=== PATIENT | female | born 1940 | race Caucasian/White ===

== ENCOUNTER → 2023-10-26 09:02 | Outpatient (REF) | payer OTHER, SELFPAY | LOC: RAD 09:02 | PROVIDERS: ATTENDING PHYSICIAN Internal Medicine; FAMILY PHYSICIAN Family Medicine | DX: K44.9 Diaphragmatic hernia without obstruction or gangrene (principal) | CPT/HCPCS: 74246 ==

== ENCOUNTER 2023-11-06 15:31 | Inpatient (IN) | payer OTHER, SELFPAY ==
[2023-11-06 12:45] VITALS: BP 188/98
[2023-11-06 12:49] VITALS: BMI 34.7
--- NOTE | 2023-11-06 12:57 | ED.GENMED ---
History of Present Illness
General
Chief Complaint: Breathing Problem
Source: patient and ambulance crew
Exam Limitations: none
Time Seen by Provider: 11/06/23 12:44
Nursing documentation reviewed up to this point in time: agreed with
Travel History
Have you had any contact with someone who has COVID-19?: No
Do you have any symptoms of coronavirus? Fever > 100 degrees, chills, cough, shortness of breath, sore throat, loss of taste or smell, muscle aches, or headache?: Yes
Symptoms:: cough
History of Present Illness
History of Present Illness:
83-year-old female presents emergency room due to shortness of breath. She began feeling short of breath about a week ago and is worsened. She denies any fevers or chills, but has a productive cough.
Past History
Past History
ED Past Medical History: COPD, GERD and HTN
ED Past Surgical History: Orthopedic (bilateral hip replacement) and Other (right mastectomy, left lumpectomy, cataracts)
Social History
Tobacco: Former smoker
Alcohol: None
Drug: None
Living: with family
Review of Systems
Review of Systems
Allergies reviewed?: Yes
All Other Systems: Not applicable
Constitutional: Reports no symptoms
EENT: Reports no symptoms
Respiratory: Reports trouble breathing
Cardiac: Reports no symptoms
ABD/GI: Reports no symptoms
: Reports no symptoms
Musculoskeletal: Reports no symptoms
Skin: Reports no symptoms
Neurological: Reports no symptoms
Endocrine: Reports no symptoms
Hematologic/Lymphatic: Reports no symptoms
Psychiatric: Reports no symptoms
Phy Exam
Physical Exam
Physical Exam:
Physical Exam
General: Moderate respiratory distress
Neck: supple. no meningeal signs. normal posterior pharynx
Heart: s1/s2 regular rate and rhythm, no murmur. equal radial
pulses.
HEENT: Pupils equal round reactive to light, EOMI
Lungs: Moderate respiratory distress, decreased breath sounds bilaterally
Abdomen: normal bowel sounds. not tender. no CVAT
Neuro: alert and oriented. no focal neurological deficits cranial nerves II through XII intact
Skin: no rash
Psychiatric: well kept. interactive and cooperative
Extremities: no edema. no calf tenderness. negative homans. good distal pulses
Scores
Heart Failure Risk
Heart Failure Risk Score: Not Applicable
Course
Orders/Labs/Results
Orders:
Orders
11/06/23 12:48
EKG [Electrocardiogram (*1)] Urgent
Reason for Study: Shortness of Breath
EKG- Treatment ONCE
11/06/23 12:56
Cardiac Monitoring- Treatment ONCE
IV Insert/Care/Rem.- Treatment PRN
Dexamethasone Sod Phosphate [Decadron] 10 mg IV NOW STA
Ipratropium/Albuterol Sulfate [Duoneb] 3 ml INH R NOW STA
CR Chest Portable - 1 View Urgent
Comment:
Reason For Exam: short of breath
Reason Study Needs to be Portable: Patient Unstable
11/06/23 13:00
Complete Blood Count/With Diff Urgent
Comprehensive Metabolic Panel Urgent
Lactic Acid Q4H
Comment: CANCEL 2nd LACTIC ACID IF 1st LACTIC ACID IS LESS THAN 2
NT-proBNP Urgent
Troponin I Urgent
Blood Culture Urgent
TRACY Source: Blood/Venous
Specimen Description:
11/06/23 14:48
COVID-19 Antigen Urgent
Source: Nasal Swab
Influenza A+B Rapid Molecular Urgent
TRACY Source: Nasal Swab
Specimen Description:
11/06/23 15:02
Admit/Transfer Patient As Directed
Co-Sign Provider:
Level of Care: Inpatient admission
Assign to:: Medical/Surgical
Physician / Group: bunny posadas
Diagnosis: acute on chronic copd exacerbation
Reason for Hospitalization: acute on chronic copd exacerbation
Expected length of stay greater than two midnights?: Yes
ELOS- Estimated Length of Stay in days: 3
I certify the patient meets the requirements for IP care: Yes
Code Status As Directed
Resuscitation Status: Do not resuscitate
Reached after discussion with pt or family/Healthcare POA: Yes
Based on pt advanced directive or healthcare POA form: Yes
Decision communicated with: per pt
DNR Bracelet Application ONCE
11/06/23 15:10
Cortisol, Random Routine
Serum Osmolality Routine
Urine Osmolality Random [Osmolality, Random Urine] Routine
Urine Sodium Routine
11/06/23 17:00
Lactic Acid Q4H
Comment: CANCEL 2nd LACTIC ACID IF 1st LACTIC ACID IS LESS THAN 2
11/06/23 20:00
Doxycycline [Vibramycin] 100 mg PO Q12
11/07/23 06:00
TSH Reflex To Free T4 IN AM
Abnormal Lab Results
11/06/23
13:00
MPV 10.6 H fL
(7.4-10.4)
Absolute Monos (auto) 0.9 H 10^3/uL
(0.1-0.6)
Monocytes % 10.5 H %
(1.7-9.3)
Sodium 128 L mmol/L
(135-145)
Chloride 92 L mmol/L
(98-107)
Glucose 106 H mg/dl
(70-99)
Calcium 10.4 H mg/dl
(8.4-10.2)
Total Bilirubin 1.5 H mg/dl
(0.2-1.3)
11/06/23 13:00
11/06/23 13:00
Vital Signs
Initial and Last Documented VS:
Initial Vital Signs
Pulse Ox
97
11/06/23 12:44
Last Documented Vital Signs
Temp Pulse Resp BP Pulse Ox
97.9 F 92 17 129/90 100
11/06/23 12:45 11/06/23 14:00 11/06/23 14:00 11/06/23 14:00 11/06/23 14:00
MDM/Problems Addressed
Differential Diagnosis Includes:
Pneumonia, CHF, COPD exacerbation
MDM/Problems Addressed:
83-year-old female with COPD exacerbation, hypoxia. Improved with nonrebreather and DuoNebs. Patient now transition to nasal cannula.
Chronic conditions affecting care: COPD
Acute Exacerbation and/or Progression of Chronic Illness: COPD
*Radiology
Radiology exam reviewed: radiology read reviewed (Chest x-ray shows fibrosis and COPD)
*Pulse Oximetry
Patient hypoxic: yes
*EKG
Interpreted by ED Provider?: Yes
EKG Intrepretation Date: 11/06/23
EKG Intrepretation Time: 12:51
Interpretation: abnormal
Comparison EKG: no comparison EKG present
Heart Rate: 101
Rate: tachycardiac
Rhythm: sinus tachycardia
[place]: normal axis
Interval: normal interval
QRS Pattern: normal QRS
Ischemia: no ischemia
*Field Tech Interpretation
Rate: tachycardiac
Interpretation: abnormal
Heart Rate: 100
Rhythm: sinus tachycardia
*Critical Care Note
Total Time (30-74mins, 75-104mins- exclusive of procedures): Not Applicable
Data Reviewed
Further Testing Considered But Not Given:
ct chest not indicated
Patient Management
Social determinants of health affecting care: Living situation
Discussion with other providers: Hospitalist
Escalation/DeEscalation of care consider admission/obs:
admit not indicated
ED Attending Note
-
Portions of this chart may have been created with voice recognition software.� Occasional wrong word or��sound alike� substitutions may have occurred due to the inherent limitations of voice recognition software.
Discharge Plan
Departure
Patient Disposition: Admit
Date of Disposition: 11/06/23
Time of Disposition: 14:25
Admit to: IMU
Presentation/result/management discussed w/ accepting MD/DO: Hospitalist
Patient with high blood pressure during this ER visit?: Yes
Condition: Fair
Discharge Problem:
Acute exacerbation of chronic obstructive pulmonary disease
Prescriptions:
No Action
fluticasone propion-salmeterol [Wixela Inhub] 250-50 mcg/dose Blister With Device
1 inh INHALATION R DAILYPRN PRN (Reason: sob)
lisinopril 20 mg Tablet
20 mg PO DAILY
guaifenesin [Robitussin] 100 mg/5 mL Liquid
200 mg PO HS
guaifenesin [Robitussin] 100 mg/5 mL Liquid
200 mg PO DAILYPRN PRN (Reason: congestion)
acetaminophen [Tylenol 8 Hour] 650 mg Tablet Extended Release
1,300 mg PO DAILY
pantoprazole 40 mg Tablet,Delayed Release (Dr/Ec)
40 mg PO DAILY
albuterol sulfate 90 mcg/actuation Hfa Aerosol Inhaler
2 puff INHALATION R Q4HPRN PRN (Reason: wheezing)
carboxymethylcellulose sodium [Refresh] 1 % Drops, Liquid Gel
2 drp BOTH EYES DAILYPRN PRN (Reason: dry eyes)
tiotropium bromide [Spiriva with HandiHaler] 18 mcg Capsule, W/Inhalation Device
1 cap INHALATION R DAILY
cholecalciferol (vitamin D3) 50 mcg (2,000 unit) Tablet
50 mcg PO DAILY
guaifenesin [Mucinex] 600 mg Tablet Extended Release 12hr
1,200 mg PO DAILY
Smooth Move Tea
1 dose PO DAILYPRN PRN (Reason: constipation)
Patient Comments:
11/06/2023, contains Senokot.
Interventions
Interventions:
*Risk Screen - Suicide Last Done: 11/06/23 12:52
*General Assessment Last Done: 11/06/23 12:50
*Neglect/Abuse Screening Last Done: 11/06/23 12:52
*ED COVID-19 Vaccine History Last Done: 11/06/23 12:49
ED- Cardiac Assessment Last Done: 11/06/23 12:50
ED- Pulmonary Assessment Last Done: 11/06/23 12:51
Discharge Date and Time
Print Language: TURKISH
[2023-11-06 13:00] VITALS: BP 183/97
[2023-11-06] MEDS: DUONEB 3 ML INH ×2 (13:04→19:38)
[2023-11-06] MEDS: DECADRON 10 MG IV (13:04)
[2023-11-06 13:13] LABS: % Basophils 0.7 % (0-2); % Eosinophils 4.2 % (0-6); % Immature Granulocytes 0.2 % (0-0.5); % Lymphocytes 26.5 % (20.5-51.1); % Monocytes 10.5 % (1.7-9.3); % Neutrophils 57.9 % (42.2-75.2); Absolute Basophils 0.1 10^3/uL (0-0.2); Absolute Eosinophils 0.4 10^3/uL (0-0.7); Absolute Lymphocytes 2.2 10^3/uL (1.2-3.4); Absolute Monocytes 0.9 10^3/uL (0.1-0.6); Absolute Neutrophils 4.8 10^3/uL (1.4-6.5); Hemoglobin 14.4 g/dL (12.0-16.0); Mean Corp Hgb Conc. 33.5 g/dL (33.0-37.0); Mean Corpuscular Hgb 30.6 pg (27.0-31.0); Mean Corpuscular Volume 91.5 fL (81.0-99.0); Mean Platelet Volume 10.6 fL (7.4-10.4); Nucleated Red Blood Cells % 0 %; Platelet Count 244 10^3/uL (130-400); Red Cell Dist. Width 13.2 % (11.5-14.5); White Blood Cell Count 8.4 10^3/uL (4.8-10.8)
[2023-11-06 13:23] LABS: ALT (SGPT) 15 U/L (0-35); AST (SGOT) 22 U/L (14-36); Albumin 4.6 g/dl (3.5-5.0); Alkaline Phosphatase 63 U/L (38-126); Blood Urea Nitrogen 14 mg/dl (7-17); Calcium 10.4 mg/dl (8.4-10.2); Carbon Dioxide 29 mmol/L (22-30); Chloride 92 mmol/L (98-107); Estimated Creatinine Clearance 66 ml/min; Glucose 106 mg/dl (70-99); Sodium 128 mmol/L (135-145); Total Bilirubin 1.5 mg/dl (0.2-1.3); Total Protein 7.2 g/dl (6.3-8.2); eGFR > 60.00
[2023-11-06 13:28] LABS: Potassium 4.9 mmol/L (3.5-5.1)
[2023-11-06 13:35] LABS: NT-proBNP 171 pg/ml; Troponin I < 0.012 ng/ml
[2023-11-06 14:00] VITALS: BP 129/90
--- NOTE | 2023-11-06 14:46 | HPS.HSE ---
Addendum entered and electronically signed by Stanley More MD 11/06/23 16:16:
Seen and examined by me independently in collaboration with the nurse practitioner Gi.
Past medical history/social history/medication/allergies reviewed.
Lab data and imaging data reviewed.
Patient with known COPD without recent flare or hospitalization unknown home nebulizers presents with 1 week of progressive shortness of breath. Started with a cough with yellow phlegm. No fever or chills. Nebulizers not helpful. Noted to be in
acute COPD flare. Treated in the ER still remains symptomatic with wheezing.
Chest with bilateral bronchospasm but no acute respiratory distress. Not hypoxic currently. Chest x-ray shows coarse interstitial markings in the bases which are likely scarring or fibrosis, changes of COPD. There is no acute findings compared
with August 2022 chest x-ray.
Possibly acute bronchitis causing COPD flare.
Treat with steroids, doxycycline and nebulizers.
Hyponatremia noted euvolemic. Check urine lites. Fluid restriction for now.
Lower extremity edema noted which by history seems to be dependent edema. Chest x-ray no evidence of heart failure. No JVD. No history of heart failure. Continue to follow.Check BNP.
Original Note:
Family Physician
-
Family Physician: Jose Pace MD
Chief Complaint
-
Shortness of breath, cough
History of Present Illness
83-year-old female complaining of shortness of breath that started approximately 1 week ago and has worsened with a productive yellow cough. She denies fever, chills, headache, chest pain, palpitations, abdominal pain, nausea, vomiting, diarrhea,
urinary symptoms. She has past medical history of COPD, former smoker, GERD, HTN, breast cancer.
Medical History
Past Medical History
Past Medical History: Reports Other
Additional Past Medical History:
COPD,
former smoker
GERD
HTN
breast cancer
Arthritis unknown type
Dry eye syndrome
Past Surgical History: Reports Other
Additional Past Surgical History:
Bilateral hip replacements
Right mastectomy
Left lumpectomy
Cataract extraction
Social History
Tobacco: Former Smoker (Quit 1988)
Alcohol: Occasional (Wine)
Personal: Single
Living: Alone
Employment: Retired
Family History
Family History: Other (Father age 52 [place], mother age 93 CVA)
Allergies / Home Medications
Allergies reflects when Allergies were last updated in [employer].
Home Medications with original date entered in [employer]
Allergy/Medication List:
Allergies
Allergy/AdvReac Type Severity Reaction Status Date / Time
diltiazem [From Cardizem] Allergy muscle pain Verified 08/09/22 19:48
heparin Allergy Itching Verified 08/09/22 19:48
latex Allergy Itching Verified 08/09/22 19:48
Home Medications
Smooth Move Tea 1 dose PO DAILYPRN PRN constipation 11/06/23
acetaminophen 650 mg tablet,extended release (Tylenol 8 Hour) 1,300 mg PO DAILY Pain 11/06/23
albuterol sulfate 90 mcg/actuation aerosol inhaler 2 puff inhalation R Q4HPRN PRN wheezing 11/06/23
carboxymethylcellulose sodium 1 % eye liquid gel drops 2 drp BOTH EYES DAILYPRN PRN dry eyes 11/06/23
cholecalciferol (vitamin D3) 50 mcg (2,000 unit) tablet 50 mcg PO DAILY Supplement 11/06/23
fluticasone 250 mcg-salmeterol 50 mcg/dose blistr powdr for inhalation (Wixela Inhub) 1 inh inhalation R DAILYPRN PRN sob 11/06/23
guaifenesin 100 mg/5 mL oral liquid 200 mg PO DAILYPRN PRN congestion 11/06/23
guaifenesin 100 mg/5 mL oral liquid 200 mg PO HS Congestion 11/06/23
guaifenesin 600 mg tablet, extended release 12 hr (Mucinex) 1,200 mg PO DAILY Congestion 11/06/23
lisinopril 20 mg tablet 20 mg PO DAILY Blood Pressure 11/06/23
pantoprazole 40 mg tablet,delayed release 40 mg PO DAILY Gastrointestinal Issue 11/06/23
tiotropium bromide 18 mcg capsule with inhalation device (Spiriva with HandiHaler) 1 cap inhalation R DAILY Lung/Breathing Issues 11/06/23
Review of Systems
-
History Source: Patient
A 12 point ROS was completed and negative except as noted: Yes
Constitutional: Denies Fever, Fatigue or Chills
EENT: Denies Sore Throat or Runny Nose
Respiratory: Reports Cough and Trouble Breathing (MARTINEZ, wheezing)
Cardiac: Denies Chest Pain, Diaphoresis, Palpitations or Syncope
Abdomen/GI: Denies Abdominal Pain, Nausea, Vomiting, Diarrhea, Constipated, Bloody Stools or Black Stools
: Denies Dysuria, Frequency, Flank Pain, Incontinence or Difficulty Voiding
Musculoskeletal: Reports Edema (+1 bilateral lower legs); Denies Joint Pain
Skin: Denies Itching or Rash
Neurological: Denies Dizzy, Headache or Weakness
Endocrine: Reports No Symptoms
Hematologic/Lymphatic: Reports No Symptoms
Psych: Reports Calm
Physical Exam
Vital Signs
Vital Signs
Temp Pulse Resp BP Pulse Ox
97.9 F 92 17 129/90 100
11/06/23 12:45 11/06/23 14:00 11/06/23 14:00 11/06/23 14:00 11/06/23 14:00
Physical Exam
General: Comfortable and Conversant; No Pain, Fever or Chills
HEENT: NormoCephalic, Anicteric, Moist mucous membranes, PERRLA, [place] Conjunctivae and No Ptosis
Respiratory: Wheezes (Inspiratory and expiratory throughout both lung lloyd)
Cardiac: S1/S2, Regular Rhythm and Peripheral Edema (Bilateral lower legs +1); No Murmur, Rub or Gallop
Breast: Deferred by me
GI: Soft, Non Tender, Normal Bowel Sounds and No Hepatosplenomegaly
Rectal: Deferred by Provider
Genito-urinary: Deferred by me
Musculoskeletal: No Clubbing, No Cyanosis, Edema, Left Lower Extremity (+1) and Edema, Right Lower Extremity (+1); No Edema, Left Upper Extremity or Edema, Right Upper Extremity
Skin: Warm and Dry; No Rash or Jaundice
Neuro: AO x 3, No Motor Deficits, Nonfocal/grossly intact, Cranial Nerves Intact and No Sensory Deficits; No Slurred Speech, Facial Droop or Tremors
Psych: Calm
Laboratory Results
-
11/06/23 13:00
11/06/23 13:00
Laboratory Results
Lactic Acid 1.0 mmol/L (0.7-2.0) 11/06/23 13:00
Total Bilirubin 1.5 mg/dl (0.2-1.3) H 11/06/23 13:00
AST 22 U/L (14-36) 11/06/23 13:00
ALT 15 U/L (0-35) 11/06/23 13:00
Alkaline Phosphatase 63 U/L (38-126) 11/06/23 13:00
Troponin I < 0.012 ng/ml 11/06/23 13:00
Impression/Plan
-
Impression/plan:
Admit to [facility]
#Acute on chronic COPD exacerbation
97% RA
-IV Decadron 4 mg every 6hours
-Decadron 4 mg every 6 hours
Doxycycline 100 mg every 12 hours
-DuoNebs scheduled and as needed
-Continue Robitussin as needed
-Patient follows with pulmonology at [facility]
-PT/OT/case management consult
EKG: Sinus tach with PACs 101 bpm, QTc 422 MS
#Hyponatremia
Check TSH with free T4, urine NA, urine Osmo, serum Osmo, cortisol level random
#HTN�benign
129/90
-Continue lisinopril 20 mg daily
#GERD
-Continue Protonix 40 mg daily
#Arthritis�unknown type
Patient takes Tylenol 1300 mg daily
#Breast cancer with right mastectomy/left lumpectomy
#Dry eye syndrome
Continue artificial tears
#Chronic ambulatory dysfunction
Uses cane at baseline
DVT prophylaxis
SCDs as patient reports itching from heparin
DNR
[2023-11-06 15:00] VITALS: BP 132/80
[2023-11-06 15:45] LABS: Osmolality Serum 281 mOsm/kg (275-300)
[2023-11-06 15:48] LABS: COVID-19 Antigen Negative (Negative)
[2023-11-06 16:22] LABS: Cortisol, Random 10.7 ug/dl
[2023-11-06 16:54] LABS: Osmolality Urine 202 mOsm/kg (300-900)
[2023-11-06 17:03] LABS: Urine Sodium 55 mmol/L (30-90)
[2023-11-06 17:51] VITALS: BP 151/91
[2023-11-06] MEDS: DUONEB INH (17:55)
[2023-11-06] MEDS: VIBRAMYCIN 100 MG PO (20:15)
[2023-11-06] MEDS: DECADRON 4 MG IV (20:15)
[2023-11-06] MEDS: TYLENOL 650 MG PO (20:33)
[2023-11-06] MEDS: ANESTHETIC LOZENGE 1 LOZENGE PO (21:39)
[2023-11-06 23:10] VITALS: BP 117/70
[2023-11-07] MEDS: DECADRON 4 MG IV ×4 (02:04→21:10)
[2023-11-07] MEDS: ANESTHETIC LOZENGE 1 LOZENGE PO ×3 (06:18→19:18)
[2023-11-07 07:00] VITALS: BP 126/73
[2023-11-07] MEDS: DUONEB 3 ML INH ×4 (07:28→20:30)
[2023-11-07] MEDS: ZESTRIL 20 MG PO (07:44)
[2023-11-07] MEDS: VIBRAMYCIN 100 MG PO ×2 (07:44→19:19)
[2023-11-07] MEDS: VITAMIN D3 (cholecalciferol) 50 MCG PO (07:44)
[2023-11-07] MEDS: MUCINEX 1200 MG PO (07:44)
[2023-11-07] MEDS: PROTONIX 40 MG PO (07:44)
[2023-11-07 08:43] LABS: % Basophils 0.2 % (0-2); % Immature Granulocytes 0.5 % (0-0.5); % Lymphocytes 11.6 % (20.5-51.1); % Monocytes 3.7 % (1.7-9.3); Absolute Monocytes 0.3 10^3/uL (0.1-0.6); Absolute Neutrophils 7.2 10^3/uL (1.4-6.5); Hematocrit 43.9 % (37.0-47.0); Hemoglobin 14.6 g/dL (12.0-16.0); Mean Corp Hgb Conc. 33.3 g/dL (33.0-37.0); Mean Corpuscular Hgb 29.9 pg (27.0-31.0); Mean Platelet Volume 10.8 fL (7.4-10.4); Nucleated Red Blood Cells % 0 %; Platelet Count 241 10^3/uL (130-400); Red Blood Cell Count 4.88 10^6/uL (4.20-5.40); Red Cell Dist. Width 12.7 % (11.5-14.5); White Blood Cell Count 8.6 10^3/uL (4.8-10.8)
[2023-11-07 09:22] LABS: Blood Urea Nitrogen 13 mg/dl (7-17); Calcium 10.3 mg/dl (8.4-10.2); Carbon Dioxide 26 mmol/L (22-30); Chloride 95 mmol/L (98-107); Estimated Creatinine Clearance 77 ml/min; Glucose 144 mg/dl (70-99); Potassium 4.9 mmol/L (3.5-5.1); Sodium 127 mmol/L (135-145); eGFR > 60.00
[2023-11-07 09:41] VITALS: BP 114/76; PULSE 83; PULSE 84; O2SAT 99
[2023-11-07 09:48] LABS: TSH Reflex To Free T4 0.34 uIU/ml (0.47-4.68)
[2023-11-07] MEDS: TYLENOL 650 MG PO ×2 (09:51→21:09)
[2023-11-07 15:00] VITALS: BP 131/72
--- NOTE | 2023-11-07 15:03 | W.PN.HOSP.TC ---
Today's Communication/Plan
-
see plan above
Assessment / Plan
Assessment / Plan
#Acute COPD exacerbation possible sec to bronchitis - some improvement since yesterday
-change IV Decadron 4 mg to q8
- Doxycycline 100 mg every 12 hours
-DuoNebs scheduled and as needed
-Continue Robitussin as needed
-Patient follows with pulmonology at [facility]
-PT/OT/case management consult
EKG: Sinus tach with PACs 101 bpm, QTc 422 MS
#Hyponatremia
Euvolemic.
Urine osmolality was 282 which is low. Fluid restrict for now treat COPD and follow. will order Lasix 1 dose today.
TSH low but free T4 normal. Cortisol normal. Repeat TSH in 2-4 weeks.
#HTN�benign
-Continue lisinopril 20 mg daily
#GERD
-Continue Protonix 40 mg daily
#Arthritis�unknown type
Patient takes Tylenol 1300 mg daily
#Breast cancer with right mastectomy/left lumpectomy
#Dry eye syndrome
Continue artificial tears
#Chronic ambulatory dysfunction
Uses cane at baseline
DVT prophylaxis
SCDs as patient reports itching from heparin
DNR
DW daughter at bedside
Anticipated Discharge: 24 - 48 hours
Subjective/Interval History
-
Date of Service: November 07, 2023
Feeling improved. Less short of breath. Cough improved. No fever or chills.
Objective Data
-
Labs:
Laboratory Results
11/07/23
08:27
WBC 8.6
Hgb 14.6
Hct 43.9
Plt Count 241
Sodium 127 L
Potassium 4.9
Chloride 95 L
Carbon Dioxide 26
BUN 13
Creatinine 0.5 L
Glucose 144 H
Calcium 10.3 H
Vital Signs:
Vital Signs
Temp Pulse Resp BP Pulse Ox
98.3 F 86 16 126/73 98
11/07/23 07:00 11/07/23 11:12 11/07/23 11:12 11/07/23 07:44 11/07/23 11:53
I&O
11/06/23 11/07/23 11/08/23
06:59 06:59 06:59
Intake Total 480 / 480
Balance 480 / 480
Review of Systems
-
EENT: Denies Sore Throat
Cardiac: Denies Chest Pain
Abdomen/GI: Denies Abdominal Pain, Nausea or Vomiting
Neuro: Denies Dizzy
Physical Exam
-
General: No Apparent Distress
HEENT: Moist Mucous Membranes
Respiratory: Non Labored Respirations and Other (few inspiratory squeaks in the right lung); Negative Wheezes or Accessory Resp Muscle Use
Cardiac: Regular Rhythm and S1/S2
Neuro: AO x 3
Psych: Calm; Negative Confused
Data Reviewed
-
Labs: Labs Reviewed by me
[2023-11-07] MEDS: LASIX 20 MG PO (15:33)
[2023-11-07 23:00] VITALS: BP 115/68
[2023-11-08] MEDS: DECADRON 4 MG IV ×3 (05:21→21:18)
[2023-11-08 06:00] VITALS: BMI 33.7
[2023-11-08 07:00] VITALS: BP 141/70
[2023-11-08] MEDS: MUCINEX 1200 MG PO (07:29)
[2023-11-08] MEDS: PROTONIX 40 MG PO (07:29)
[2023-11-08] MEDS: VIBRAMYCIN 100 MG PO ×2 (07:29→21:23)
[2023-11-08] MEDS: ZESTRIL 20 MG PO (07:29)
[2023-11-08] MEDS: VITAMIN D3 (cholecalciferol) 50 MCG PO (07:29)
[2023-11-08] MEDS: DUONEB 3 ML INH ×4 (08:23→19:04)
[2023-11-08 08:50] LABS: Blood Urea Nitrogen 22 mg/dl (7-17); Chloride 91 mmol/L (98-107); Estimated Creatinine Clearance 75 ml/min; Glucose 108 mg/dl (70-99); Potassium 4.9 mmol/L (3.5-5.1); Sodium 122 mmol/L (135-145); eGFR > 60.00
[2023-11-08 09:18] LABS: Carbon Dioxide 21 mmol/L (22-30)
[2023-11-08] MEDS: TYLENOL 650 MG PO ×2 (09:56→21:24)
[2023-11-08] MEDS: LASIX 20 MG IV (10:07)
--- NOTE | 2023-11-08 10:51 | W.PN.HOSP.TC ---
Today's Communication/Plan
-
FR
One dose of lasix
CW current COPD treatments
Follow Na
Assessment / Plan
Assessment / Plan
#Acute COPD exacerbation possible sec to bronchitis - Continued improvement since adx.
-cw IV Decadron 4 mg to q8 and switch to oral prednisone in am if stable
- cw Doxycycline 100 mg every 12 hours
-DuoNebs scheduled and as needed
-Continue Robitussin as needed
-Patient follows with pulmonology at [facility]
-PT/OT/case management consult
EKG: Sinus tach with PACs 101 bpm, QTc 422 MS
#Hyponatremia
Euvolemic.
Urine osmolality was 282 which is low.
Sodium dropped down no further 122 -suspect probably because there was order for Fr mistakenly. FR 1200 ;will give a dose of lasix .
TSH low but free T4 normal. Cortisol normal. Repeat TSH in 2-4 weeks.
#HTN�benign
-Continue lisinopril 20 mg daily
#GERD
-Continue Protonix 40 mg daily
#Arthritis�unknown type
Patient takes Tylenol 1300 mg daily
#Breast cancer with right mastectomy/left lumpectomy
#Dry eye syndrome
Continue artificial tears
#Chronic ambulatory dysfunction
Uses cane at baseline
DVT prophylaxis
SCDs as patient reports itching from heparin
DNR
DW daughter at bedside
Anticipated Discharge: 24 - 48 hours
Subjective/Interval History
-
Date of Service: November 08, 2023
Improving shortness of breath.
Improving cough.
Currently on 1 L of oxygen.
No fever or chills.
Objective Data
-
Labs:
Laboratory Results
11/08/23
06:07
Sodium 122 L
Potassium 4.9
Chloride 91 L
Carbon Dioxide 21 L
BUN 22 H
Creatinine 0.6
Glucose 108 H
Calcium 10.0
Vital Signs:
Vital Signs
Temp Pulse Resp BP Pulse Ox
97.8 F 72 16 126/64 98
11/08/23 07:00 11/08/23 08:26 11/08/23 08:26 11/08/23 10:07 11/08/23 09:11
I&O
11/07/23 11/08/23 11/09/23
06:59 06:59 06:59
Intake Total 3210 / 3210
Balance 3210 / 3210
Review of Systems
-
EENT: Denies Sore Throat
Cardiac: Denies Chest Pain
Abdomen/GI: Denies Abdominal Pain, Nausea or Vomiting
Musculoskeletal: Reports Edema (trace BL)
Neuro: Denies Dizzy or Headache
Physical Exam
-
General: No Apparent Distress
HEENT: Moist Mucous Membranes
Respiratory: Negative Wheezes
Cardiac: Regular Rhythm and S1/S2
GI: Soft, Nontender, Nondistended and Normal Bowel Sounds
Neuro: AO x 3
Data Reviewed
-
Labs: Labs Reviewed by me
[2023-11-08 14:07] VITALS: BMI 33.7
[2023-11-08 15:00] VITALS: BP 126/66
[2023-11-08] MEDS: ANESTHETIC LOZENGE 1 LOZENGE PO (19:23)
[2023-11-08 23:42] VITALS: BP 125/75
[2023-11-09] MEDS: DECADRON 4 MG IV ×2 (05:38→18:02)
[2023-11-09 06:00] VITALS: BMI 33.3
[2023-11-09] MEDS: DUONEB 3 ML INH ×4 (07:51→20:13)
[2023-11-09 07:56] VITALS: BP 116/79
[2023-11-09] MEDS: VITAMIN D3 (cholecalciferol) 50 MCG PO (08:57)
[2023-11-09] MEDS: MUCINEX 1200 MG PO (08:57)
[2023-11-09] MEDS: VIBRAMYCIN 100 MG PO ×2 (08:58→20:03)
[2023-11-09] MEDS: PROTONIX 40 MG PO (08:58)
[2023-11-09] MEDS: ZESTRIL 20 MG PO (08:58)
[2023-11-09 12:48] LABS: Blood Urea Nitrogen 24 mg/dl (7-17); Calcium 10.6 mg/dl (8.4-10.2); Carbon Dioxide 26 mmol/L (22-30); Chloride 87 mmol/L (98-107); Estimated Creatinine Clearance 75 ml/min; Glucose 110 mg/dl (70-99); Potassium 5.1 mmol/L (3.5-5.1); Sodium 123 mmol/L (135-145); eGFR > 60.00
--- NOTE | 2023-11-09 14:00 | W.PN.HOSP.TC ---
Today's Communication/Plan
-
Consult nephrology
Follow sodium
Decrease steroids
Assessment / Plan
Assessment / Plan
#Acute COPD exacerbation possible sec to bronchitis - Continued improvement since adx.
- Off oxygen.
-Decrease steroids further.
- cw Doxycycline 100 mg every 12 hours
-DuoNebs scheduled and as needed
-Continue Robitussin as needed
-Patient follows with pulmonology at [facility]
-PT/OT/case management consult
EKG: Sinus tach with PACs 101 bpm, QTc 422 MS
#Hyponatremia
Euvolemic.
Urine osmolality was 282 which is low.
Sodium dropped down no further 122 -suspect probably because there was order for Fr mistakenly. FR 1200 . Remains low. Will consult nephrology for role of Samsca.
TSH low but free T4 normal. Cortisol normal. Repeat TSH in 2-4 weeks.
#HTN�benign
-Continue lisinopril 20 mg daily
#GERD
-Continue Protonix 40 mg daily
#Arthritis�unknown type
Patient takes Tylenol 1300 mg daily
#Breast cancer with right mastectomy/left lumpectomy
#Dry eye syndrome
Continue artificial tears
#Chronic ambulatory dysfunction
Uses cane at baseline
DVT prophylaxis
SCDs as patient reports itching from heparin
DNR
Anticipated Discharge: Within 24 hours
Subjective/Interval History
-
Date of Service: November 09, 2023
Improved breathing. Improved cough. Off of oxygen.
Objective Data
-
Labs:
Laboratory Results
11/09/23
11:57
Sodium 123 L
Potassium 5.1
Chloride 87 L
Carbon Dioxide 26
BUN 24 H
Creatinine 0.6
Glucose 110 H
Calcium 10.6 H
Vital Signs:
Vital Signs
Temp Pulse Resp BP Pulse Ox
97.9 F 72 18 116/79 96
11/09/23 07:56 11/09/23 11:36 11/09/23 11:36 11/09/23 07:56 11/09/23 11:36
I&O
11/08/23 11/09/23 11/10/23
06:59 06:59 06:59
Intake Total 3210 / 3210 1230 / 1230
Balance 3210 / 3210 1230 / 1230
Review of Systems
-
EENT: Denies Sore Throat
Cardiac: Denies Chest Pain
Abdomen/GI: Denies Abdominal Pain, Nausea or Vomiting
Neuro: Denies Dizzy
Physical Exam
-
General: No Apparent Distress
HEENT: Moist Mucous Membranes
Respiratory: Clear to Auscultation; Negative Wheezes or Crackles
Cardiac: Regular Rhythm and S1/S2
Neuro: Negative AO x 3
Psych: Calm
Data Reviewed
-
Labs: Labs Reviewed by me
--- NOTE | 2023-11-09 14:17 | PN.CDI ---
CDI
- -
CDI:
Physician Documentation Request
Admit Date: 11/06/23 15:31
Dear Doctor Derik,
Clinical Indicators:
Patient admitted with acute COPD flare.
11/05 ED report, 'Improved with nonrebreather and DuoNebs.'
Physical exam: Moderate respiratory distress
02 requirements on admission:
11/06/23
12:56
Flow liters per minute # 15
Oxygen Mode of Delivery Non-rebreather
mask
11/05 02 requirements:
11/06/23
17:00 11/06/23
20:15 11/06/23
23:10
Nasal Cannula flow liters per minute 4 4 4
RR trend on admission:
11/06/23
12:45 11/06/23
13:00 11/06/23
13:30
Resp Rate 22 28 25
11/06/23
14:15 11/06/23
15:15 11/06/23
16:00
Resp Rate 31 23 22
Please clarify which of the following accurately represents the patient's respiratory status:
Acute hypoxic respiratory failure
Hypoxia only
Other, please specify
Additional information for Respiratory Failure:
Recognized criteria for Respiratory Failure (Source: [facility] Hospitalist Jun 2013)
ABGs: (1 or more) Symptoms Please indicate type if known
1. p)2 <60 or RA SPO2 <91% on RA 1. Tachypnea, SOB, dyspnea Hypoxic
2. pCO2 50 and pH <7.35 2. Use of accessory muscles Hypercapnic
3. pO2 decrease of pCO2 increase by 3. Pallor or cyanosis Hypoxic and Hypercapnic
10 mmHg from baseline if known 4. Anxiety or restlessness Unable to determine
5. Unable to speak in full sentences
Supplemental O2 of > 40% (5LPM) Intubation is not required
Use of terms such as suspected, likely, concern for, or probable (associated with a specific diagnosis that is being evaluated, monitored, or treated as if it exists) are acceptable and can be coded in the inpatient setting, when documented at the
time of discharge.
Thank you,
ANDREA Nelson RN
CDI Specialist
available via tiger text
Please use your independent medical judgment in providing your response.
--- NOTE | 2023-11-09 14:36 | PN.CDI ---
CDI
- -
CDI:
Physician Documentation Request
Admit Date: 11/06/23 15:31
Dear Doctor Derik,
Clinical Indicators:
Patient admitted with acute COPD flare.
BMI 33.3
11/07 note/assessment: -'...significant 10.9% weight loss x 3 months'
-'...admits to poor intakes due to swallowing issues.'
-'Per ASPEN/AND guidelines, pt meets for moderate malnutrition in the context of
chronic illness as evidenced by <75% intake est needs x > 3 months, 10.9% weight
loss x 3 months.'
Based on the information, which of the following most accurately represents the patient's nutritional status?
Moderate Protein Calorie Malnutrition
Mild Protein Calorie Malnutrition
Other (please specify)
[place] Criteria (ACP Hospitalist 2017)
2 or more criteria must be present for either
non severe or severe malnutrition
Note that the criteria differs related to the
presence of an acute or chronic illness
Acute Illness Chronic Illness
Energy Intake Non Severe: <75% for >7 days Non Severe: <75% for >1 month
Severe: <50% for >5 days Severe: <75% for >1 month
Weight Loss Non Severe: 1-2% over 1 week Non Severe: 5% over 1 month
5% over 1 month 7.5% over 3 months
7.5% over 3 months 10% over 6 months
1 year N/A 20% over 1 year
Severe: >2% over 1 week Severe: >5% over 1 month
>5% over 1 month >7.5% over 3 months
>7.5% over 3 months >10% over 6 months
1 year N/A >20% over 1 year
Body Fat Non Severe: Mild Decrease Non Severe: Mild Loss
Severe: Moderate Decrease Severe: Severe Loss
Muscle Mass Non Severe: Mild Decrease Non Severe: Mild Loss
Severe: Moderate Decrease Severe: Severe Loss
Fluid Accumulation Non Severe: Mild Accumulation Non Severe: Mild Accumulation
Severe: Moderate to severe Severe: Moderate to severe
accumulation accumulation
Reduced Performance Improvement Analyst Strength Non Severe: N/A Non Severe: N/A
Severe: Measurably reduced Severe: Measurably reduced
Additional criteria that can be used to Determine if Mild or Moderate Malnutrition (Merck Manual 2018)
Mild Moderate Severe
Albumin gm/dl <3.0 gm/dl <2.5 gm/dl <2.0 gm/dl
Pre Albumin mg/dl <15 gm/dl <10 mg/dl <5.0 mg/dl
BMI <18.5 <17 <16
Use of terms such as suspected, likely, concern for, or probable (associated with a specific diagnosis that is being evaluated, monitored, or treated as if it exists) are acceptable and can be coded in the inpatient setting, when documented at the
time of discharge.
Thank you,
ANDREA Nelson RN
CDI Specialist
available via tiger text
Please use your independent medical judgment in providing your response.
--- NOTE | 2023-11-09 14:57 | CM ---
Addendum entered by Olinda Connors 11/09/23 15:03:
Plan - anticipate home with [facility]
Original Note:
Met with pt at bedside
Reports lives alone in a 2 story home
Family lives nearby and assists as needed. Does own cooking, independent adl's
DME in home includes cane, rolling walker, shower chair, and grab bars
Denies past snf/HH
Has ride when d/c'ed
PCP - Dr Ld pierre
Pharm - [facility]
PT recs HH - no preference - referred to [facility] - TT sent to Liaison
--- NOTE | 2023-11-09 15:23 | VNURNOTE ---
Home Health Liaison spoke with patient by phone at 1515 to discuss [facility] nurse/therapy, visits, schedule and homebound status. Patient is agreeable and understands that visits at home will be 2-3 x per week to assess and teach medical management.
Patient is aware that [facility] will contact her for start of care in 1-2 days after discharge from .
[facility] referral completed in [facility].
[2023-11-09 15:24] VITALS: BP 146/76
--- NOTE | 2023-11-09 16:54 | W.CON.NEPH ---
Consultation
-
Date/Time Consultation Requested: 11/09/23, 11:00 AM
Date/Time Consultation Performed: 11/09/23 5:00 PM
Requesting Provider: Derik
Performing Provider: Lennox
Reason for Consultation: Hyponatremia
Medical History
-
Chief Complaint: Hyponatremia
History of Present Illness:
. 83-year-old female with a past medical history of hypertension maintained on lisinopril, GERD maintained on proton pump inhibitor therapy, and COPD managed on a combination of albuterol And Spiriva. The patient presented to the hospital with a
one-week history of progressive shortness of breath and admitted with COPD exacerbation. She is been treated with steroids during her hospitalization. Her serum sodium level on presentation was 128 and is now decreased to 123 nephrology was asked to
see the patient.
Past Medical History
COPD,
former smoker
GERD
HTN
breast cancer
Arthritis unknown type
Dry eye syndrome
Social History
Ex-tobacco, quit in 1988
, Rare alcohol ingestion
Lives alone
Family History
. No chronic kidney disease
Allergies / Home Medications
Allergy/AdvReac Type Severity Reaction Status Date / Time
diltiazem [From Cardizem] Allergy muscle pain Verified 08/09/22 19:48
heparin Allergy Itching Verified 08/09/22 19:48
latex Allergy Itching Verified 08/09/22 19:48
�Medication �Instructions �Recorded �Confirmed �Type
Smooth Move Tea 1 dose PO DAILYPRN PRN constipation 11/06/23 11/06/23 History
acetaminophen 650 mg 1,300 mg PO DAILY Pain 11/06/23 11/06/23 History
tablet,extended release (Tylenol 8
Hour)
albuterol sulfate 90 mcg/actuation 2 puff inhalation R Q4HPRN PRN 11/06/23 11/06/23 History
aerosol inhaler wheezing
carboxymethylcellulose sodium 1 % 2 drp BOTH EYES DAILYPRN PRN dry 11/06/23 11/06/23 History
eye liquid gel drops eyes
cholecalciferol (vitamin D3) 50 50 mcg PO DAILY Supplement 11/06/23 11/06/23 History
mcg (2,000 unit) tablet
fluticasone 250 mcg-salmeterol 50 1 inh inhalation R DAILYPRN PRN sob 11/06/23 11/06/23 History
mcg/dose blistr powdr for
inhalation (Wixela Inhub)
guaifenesin 100 mg/5 mL oral liquid 200 mg PO DAILYPRN PRN congestion 11/06/23 11/06/23 History
guaifenesin 100 mg/5 mL oral liquid 200 mg PO HS Congestion 11/06/23 11/06/23 History
guaifenesin 600 mg tablet, 1,200 mg PO DAILY Congestion 11/06/23 11/06/23 History
extended release 12 hr (Mucinex)
lisinopril 20 mg tablet 20 mg PO DAILY Blood Pressure 11/06/23 11/06/23 History
pantoprazole 40 mg tablet,delayed 40 mg PO DAILY Gastrointestinal 11/06/23 11/06/23 History
release Issue
tiotropium bromide 18 mcg capsule 1 cap inhalation R DAILY 11/06/23 11/06/23 History
with inhalation device (Spiriva Lung/Breathing Issues
with HandiHaler)
Review of Systems
-
History Source: Patient
All other systems: Negative unless noted
Respiratory: Cough and Trouble Breathing
Physical Exam
Vital Signs
Vital Signs
Temp Pulse Resp BP Pulse Ox
98.1 F 95 15 146/76 95
11/09/23 15:24 11/09/23 16:01 11/09/23 16:01 11/09/23 15:24 11/09/23 15:24
Lab Results
11/07/23 08:27
11/09/23 11:57
WBC 8.6 10^3/uL (4.8-10.8) 11/07/23 08:27
RBC 4.88 10^6/uL (4.20-5.40) 11/07/23 08:27
Hgb 14.6 g/dL (12.0-16.0) 11/07/23 08:27
Hct 43.9 % (37.0-47.0) 11/07/23 08:27
Plt Count 241 10^3/uL (130-400) 11/07/23 08:27
Sodium 123 mmol/L (135-145) L 11/09/23 11:57
Potassium 5.1 mmol/L (3.5-5.1) 11/09/23 11:57
Chloride 87 mmol/L (98-107) L 11/09/23 11:57
Carbon Dioxide 26 mmol/L (22-30) 11/09/23 11:57
BUN 24 mg/dl (7-17) H 11/09/23 11:57
Creatinine 0.6 mg/dL (0.6-1.0) 11/09/23 11:57
eGFR > 60.00 11/09/23 11:57
Glucose 110 mg/dl (70-99) H 11/09/23 11:57
Calcium 10.6 mg/dl (8.4-10.2) H 11/09/23 11:57
Lxg-K-Ornobfheoiv Pept 171 pg/ml 11/06/23 13:00
Albumin 4.6 g/dl (3.5-5.0) 11/06/23 13:00
Physical Exam
General: AOx3, No Distress and Nontoxic
HEENT: PERRL, EOMI, Anicteric, Conjunctivae Clear, Ear/Nose Intact, Hearing Normal, Oropharynx Clear/Moist, Dentition Intact, Facial Symmetry, Neck Supple, Trachea Midline, No JVD and No Thyromegaly
Respiratory: Wheezes (Left upper lung, Decreased breath sounds to bases bilaterally) and Normal Excursion
Cardiac: S1/S2 and Regular Rate/Rhythm
Breast: Deferred by me
Abdomen: Soft, Nontender, Nondistended, Normal Bowel Sounds and No Hepatosplenomegaly
Rectal: Deferred by Provider
Genito-urinary: No Costovertebral Tender
Musculoskeletal: No Clubbing, No Cyanosis and No Edema ( trace pretibial edema)
Skin: No Rash, Warm, Dry, No Clubbing, No Cyanosis, Normal Turgor and No Bruising
Neuro: Nonfocal/Grossly Intact, CN II-XII (, intact) and Strength (, 5 out of 5 in both upper and lower extremity)
Hematologic/Lymphatic: No Cervical Lymphadenopathy, No Submandibular Lymphadenopathy and No Supraclavicular Lymphadenopathy
Psych: Mood/afflect pleasant, Insight/judgement good and Appropriate
Assessment/Plan
-
Impression:
Hyponatremia
COPD exacerbation
Hypertension
Plan:
Hyponatremia likely a function of SIADH in the setting of primary pulmonary process, , Although urine osmolarity of 282 is not consistent with significant SIADH
-We'll provide 3% saline for total of 250cc at 30cc/hr
-Maintain fluid restriction
HTN:
-Maintain lisinopril
Data Reviewed
-
Radiology: Image Personally Visualized and interpreted ( reviewed chest x-ray personally notable for fibrotic changes. No CHF or pneumonic process)
Labs: Labs Reviewed by me ( basic metabolic panel, urine osmolality)
Old Records: Reviewed ( review sodium level from 08/09/22 electronic medical record 134)
[2023-11-09] MEDS: SODIUM CHLORIDE 3% 250 IV (18:03)
[2023-11-09] MEDS: TYLENOL 650 MG PO (21:51)
[2023-11-09 23:30] VITALS: BP 125/69
[2023-11-10 05:50] VITALS: BMI 33.4
[2023-11-10] MEDS: DECADRON 4 MG IV ×2 (05:50→17:06)
[2023-11-10 06:25] LABS: Blood Urea Nitrogen 24 mg/dl (7-17); Calcium 9.5 mg/dl (8.4-10.2); Carbon Dioxide 26 mmol/L (22-30); Chloride 96 mmol/L (98-107); Estimated Creatinine Clearance 75 ml/min; Glucose 115 mg/dl (70-99); Sodium 126 mmol/L (135-145); eGFR > 60.00
[2023-11-10 07:00] VITALS: BP 136/76
[2023-11-10] MEDS: DUONEB 3 ML INH ×4 (07:51→20:13)
[2023-11-10] MEDS: PROTONIX 40 MG PO (08:06)
[2023-11-10] MEDS: VITAMIN D3 (cholecalciferol) 50 MCG PO (08:07)
[2023-11-10] MEDS: MUCINEX 1200 MG PO (08:07)
[2023-11-10] MEDS: VIBRAMYCIN 100 MG PO ×2 (08:07→20:30)
[2023-11-10] MEDS: ZESTRIL 20 MG PO (08:07)
[2023-11-10] MEDS: SODIUM CHLORIDE 3% 250 IV (09:23)
[2023-11-10 10:57] VITALS: BP 130/74; PULSE 72; O2SAT 96
[2023-11-10 11:18] VITALS: PULSE 87; O2SAT 95
--- NOTE | 2023-11-10 11:33 | W.PN.HOSP.TC ---
Addendum entered and electronically signed by Stanley More MD 11/11/23 19:13:
No evidence of acute hypoxic respiratory failure but hypoxia noted.
Addendum entered and electronically signed by Stanley More MD 11/11/23 19:12:
pt meets for moderate malnutrition in the context of
chronic illness as evidenced by <75% intake est needs x > 3 months, 10.9% weight
loss x 3 months.'
Original Note:
Today's Communication/Plan
-
cw hypertonic saline
follow Na
DC planning
Assessment / Plan
Assessment / Plan
#Acute COPD exacerbation possible sec to bronchitis - Continued improvement since adx.
-Off oxygen.
- cw steroid taper
- cw Doxycycline 100 mg every 12 hours for 5 days
-DuoNebs scheduled and as needed
-Continue Robitussin as needed
-Patient follows with pulmonology at [facility]
#Hyponatremia
Euvolemic.
Urine osmolality was 282 which is low.
Sodium dropped down no further 122 -suspect probably because there was order for Fr mistakenly. FR 1200 . Remains low. appt nephrology input-now on 3% normal saline. Follow sodium-Improving.
TSH low but free T4 normal. Cortisol normal. Repeat TSH in 2-4 weeks.
#HTN�benign
-Continue lisinopril 20 mg daily
#GERD
-Continue Protonix 40 mg daily
#Arthritis�unknown type
Patient takes Tylenol 1300 mg daily
#Breast cancer with right mastectomy/left lumpectomy
#Dry eye syndrome
Continue artificial tears
#Chronic ambulatory dysfunction
Uses cane at baseline
DVT prophylaxis
SCDs as patient reports itching from heparin
DNR
DC home when okay from nephrology standpoint.
Anticipated Discharge: Today
Subjective/Interval History
-
Date of Service: November 10, 2023
Feeling improved.
Breathing better.
Cough better.
No dizziness.
Objective Data
-
Labs:
Laboratory Results
11/10/23
05:34
Sodium 126 L
Potassium 5.0
Chloride 96 L
Carbon Dioxide 26
BUN 24 H
Creatinine 0.6
Glucose 115 H
Calcium 9.5
Vital Signs:
Vital Signs
Temp Pulse Resp BP Pulse Ox
97.9 F 80 16 136/76 98
11/10/23 07:00 11/10/23 11:25 11/10/23 11:25 11/10/23 07:00 11/10/23 11:25
I&O
11/09/23 11/10/23 11/11/23
06:59 06:59 06:59
Intake Total 1230 / 1230 1328 / 1328
Balance 1230 / 1230 1328 / 1328
Review of Systems
-
Constitutional: Denies Fever
EENT: Denies Sore Throat
Abdomen/GI: Denies Abdominal Pain, Nausea or Vomiting
Neuro: Denies Dizzy
Physical Exam
-
General: No Apparent Distress
HEENT: Moist Mucous Membranes
Respiratory: Clear to Auscultation; Negative Wheezes or Crackles
Cardiac: Regular Rhythm and S1/S2
GI: Soft, Nontender, Nondistended and Normal Bowel Sounds
Musculoskeletal: No Edema
Neuro: AO x 3
Psych: Calm
Data Reviewed
-
Labs: Labs Reviewed by me
[2023-11-10 12:34] LABS: Blood Urea Nitrogen 24 mg/dl (7-17); Carbon Dioxide 24 mmol/L (22-30); Chloride 95 mmol/L (98-107); Estimated Creatinine Clearance 75 ml/min; Glucose 111 mg/dl (70-99); Sodium 127 mmol/L (135-145); eGFR > 60.00
--- NOTE | 2023-11-10 13:25 | W.PN.NEPH.PH ---
Today's Communication / Plan
-
- HTS today
Assessment/Plan
-
Impression:
Hyponatremia
COPD exacerbation
Hypertension
Plan:
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
-s/p 3% HTS yesterday, plan for another round of 3% HTS today
-Maintain fluid restriction
-plan for Na >130 by tomorrow AM
HTN:
-Maintain lisinopril
-
-
Date of Service: November 10, 2023
CC / HPI / ROS
-
Chief Complaint:
hyponatremia
History of Present Illness:
COPD exacerbation
hyponatremia improvign with HTS
Review of Systems:
feeling well today
Labs
-
Labs:
WBC 8.6 10^3/uL (4.8-10.8) 11/07/23 08:27
RBC 4.88 10^6/uL (4.20-5.40) 11/07/23 08:27
Hgb 14.6 g/dL (12.0-16.0) 11/07/23 08:27
Hct 43.9 % (37.0-47.0) 11/07/23 08:27
Plt Count 241 10^3/uL (130-400) 11/07/23 08:27
Sodium 127 mmol/L (135-145) L 11/10/23 11:54
Potassium 5.0 mmol/L (3.5-5.1) 11/10/23 11:54
Chloride 95 mmol/L (98-107) L 11/10/23 11:54
Carbon Dioxide 24 mmol/L (22-30) 11/10/23 11:54
BUN 24 mg/dl (7-17) H 04/09/24 11:54
Creatinine 0.6 mg/dL (0.6-1.0) 11/10/23 11:54
eGFR > 60.00 11/10/23 11:54
Glucose 111 mg/dl (70-99) H 11/10/23 11:54
Calcium 10.0 mg/dl (8.4-10.2) 11/10/23 11:54
Wmk-T-Iqcspvpelfv Pept 171 pg/ml 11/06/23 13:00
Albumin 4.6 g/dl (3.5-5.0) 11/06/23 13:00
Physical Exam
-
Vital Signs:
Vital Signs
Temp Pulse Resp BP Pulse Ox
97.9 F 80 16 136/76 98
11/10/23 07:00 11/10/23 11:25 11/10/23 11:25 11/10/23 07:00 11/10/23 11:25
Cardiovascular:: Regular rate and rhythm
Respiratory:: Bilateral: Coarse
Lung Excursion:: Normal
Abdomen:: Nontender and Soft
Bowel Sounds:: Normal
Extremity Edema:: +1: Bilateral:
Lucas Catheter: No
[2023-11-10 15:00] VITALS: BP 133/72
[2023-11-10] MEDS: TYLENOL 650 MG PO (22:22)
[2023-11-10 23:22] VITALS: BP 145/76
[2023-11-11] MEDS: DECADRON 4 MG IV ×2 (05:42→17:28)
[2023-11-11 06:00] VITALS: BMI 33.2
[2023-11-11 07:00] VITALS: BP 136/78
[2023-11-11] MEDS: DUONEB 3 ML INH ×3 (08:28→16:09)
[2023-11-11] MEDS: VITAMIN D3 (cholecalciferol) 50 MCG PO (08:30)
[2023-11-11] MEDS: MUCINEX 1200 MG PO (08:30)
[2023-11-11] MEDS: ZESTRIL 20 MG PO (08:30)
[2023-11-11] MEDS: VIBRAMYCIN 100 MG PO ×2 (08:30→20:01)
[2023-11-11] MEDS: PROTONIX 40 MG PO (08:31)
[2023-11-11 09:59] LABS: Blood Urea Nitrogen 29 mg/dl (7-17); Calcium 10.2 mg/dl (8.4-10.2); Carbon Dioxide 24 mmol/L (22-30); Chloride 96 mmol/L (98-107); Estimated Creatinine Clearance 75 ml/min; Glucose 127 mg/dl (70-99); Potassium 5.1 mmol/L (3.5-5.1); Sodium 129 mmol/L (135-145); eGFR > 60.00
--- NOTE | 2023-11-11 12:21 | W.PN.HOSP.TC ---
Addendum entered and electronically signed by Cate Castro MD 11/11/23 15:22:
Here COPD poorly controlled and she is not on rate medication, will get pulmonary to help us out and see recommendation for better control of her COPD.
Original Note:
Today's Communication/Plan
-
All discussed with the patient and the nurse
Assessment / Plan
Assessment / Plan
Physical exam:
General: Awake, alert and oriented x3, not in distress and holds appropriate conversation.
HEENT: No active discharge, ecchymosis or bruising, moist lips, tongue and mucous membrane.
Eyes: No discharge or red conjunctiva, no nystagmus, pupils are reactive and equal
Neck:Supple, no JVD no bruit no goiter.
Respiratory: Normal AP contour and diameter, normal chest wall movement, normal respiratory effort, no respiratory distress,
Lungs: Mildly diminished air entry bilaterally, fine bilateral wheezing but no rhonchi, no rales or crackles
Heart: S1, S2 regular, normal rate, no added sound.
Gastrointestinal: Positive bowel sounds, soft, nontender, no guarding or rigidity or organomegaly
Musculoskeletal: , no chest wall abnormality or tenderness. All joints and extremities have good range of motion, no muscle tenderness or any joint swelling or tenderness.
Extremities: No pitting edema, good peripheral pulses, good range of motion
Skin: Warm and dry, no ulceration, normal color.
Neurological: Awake, alert and oriented x3, speech clear and comprehensive, good muscle tone, normal sensory and motor function
Psychiatric: Normal mood, normal thought and judgment, normal affect,
Assessment and plan:
#Acute COPD exacerbation possible sec to bronchitis -improving but still symptomatic and not ready for discharge is going to the bathroom made her short of breath.
-Off oxygen.
-Continue Decadron today and changed to prednisone tomorrow
- cw Doxycycline 100 mg every 12 hours for 5 days
-DuoNebs scheduled and as needed
-Continue Robitussin as needed
-Monitor vital sign
-Patient follows with pulmonology at [facility]
-Since she is still symptomatic but we will keep her for another 24 hours and reassess
#Hyponatremia
Euvolemic.
Urine osmolality was 282 which is low. SIADH not much likely.
Sodium improved was 129 today
Off 3%
Nephrology on board
TSH low but free T4 normal. Cortisol normal. Repeat TSH in 2-4 weeks.
#HTN�benign
-Continue lisinopril 20 mg daily
-Continue to monitor blood
#GERD
-Continue Protonix 40 mg daily
#Arthritis�unknown type
Patient takes Tylenol 1300 mg daily
#Breast cancer with right mastectomy/left lumpectomy
#Dry eye syndrome
Continue artificial tears
#Chronic ambulatory dysfunction
Uses cane at baseline
DVT prophylaxis
SCDs as patient reports itching from heparin
DNR
From COPD standpoint she is still symptomatic not ready for discharge.
Anticipated Discharge: 24 - 48 hours
Subjective/Interval History
-
Date of Service: November 11, 2023
0 examined, awake and alert, she still feeling short of breath and even going to the bathroom and came back she was feeling short of breath and not back at baseline admits she is clinically short of breath but not as bad is like this, have no
audible wheezing, have a dry cough, afebrile, no chest pain or vomiting. GI symptom, moves her bowels.
Objective Data
-
Labs:
Laboratory Results
11/11/23
09:17
Sodium 129 L
Potassium 5.1
Chloride 96 L
Carbon Dioxide 24
BUN 29 H
Creatinine 0.6
Glucose 127 H
Calcium 10.2
Vital Signs:
Vital Signs
Temp Pulse Resp BP Pulse Ox
98.3 F 84 18 136/78 93
11/11/23 07:00 11/11/23 12:09 11/11/23 12:09 11/11/23 07:00 11/11/23 12:09
I&O
11/10/23 11/11/23 11/12/23
07:59 07:59 07:59
Intake Total 1328 / 1328 1380 / 1380
Balance 1328 / 1328 1380 / 1380
Review of Systems
-
All other systems: Reviewed and negative
[2023-11-11 15:00] VITALS: BP 134/72
[2023-11-11] MEDS: ANESTHETIC LOZENGE 1 LOZENGE PO (15:11)
--- NOTE | 2023-11-11 15:18 | CM ---
Case management following for d/c planning
Pt for HH for PT
Accepted by [facility]
Pt reports she will have ride at d/c
CM will continue to follow for d/c needs
Plan - anticipate home with [facility]
--- NOTE | 2023-11-11 15:51 | CON.PUL ---
Consultation
Consultation Request
Date/Time Consultation Requested: 11/11/23
Date/Time Consultation Performed: 11/11/23
Performing Provider: Pam
Reason for Consultation: COPD
Medical History
-
History of Present Illness:
Patient is a 83-year-old female with history of COPD, HTN presents to ER complaining of shortness of breath that started approximately 1 week ago and has worsened with a productive yellow cough. She was admitted on 11/06/23 for AECOPD likely
triggered by bronchitis. She has been improving since admission with IV steroids.
She had been following with [facility], Dr Norris and last seen this past Fall. She notes that she had been stable on inhalers and generally well controlled.
She does not have frequent exacerbations requiring prednisone, hospitalizations. Last flare, was several years ago due to bronchitis.
Former smoker, quit in 1988.
CXR showing chronic changes possibly progressed compared to prior imaging. It is otherwise clear and without acute findings.
Past Medical History
Past Medical History: Other (see list below)
Social History
Tobacco: Former Smoker
Alcohol: None
Drug: None
Family History
Family History: Reviewed & Not Pertinent
Allergies / Home Medications
Allergies
Allergy/AdvReac Type Severity Reaction Status Date / Time
diltiazem [From Cardizem] Allergy muscle pain Verified 08/09/22 19:48
heparin Allergy Itching Verified 08/09/22 19:48
latex Allergy Itching Verified 08/09/22 19:48
Home Medications
�Medication �Instructions �Recorded �Confirmed �Last Taken �Type
Smooth Move Tea 1 dose PO DAILYPRN PRN constipation 11/06/23 11/06/23 1 Week Ago History
~10/30/23
acetaminophen 650 mg 1,300 mg PO DAILY Pain 11/06/23 11/06/23 11/06/23 History
tablet,extended release (Tylenol 8
Hour)
albuterol sulfate 90 mcg/actuation 2 puff inhalation R Q4HPRN PRN 11/06/23 11/06/23 11/06/23 History
aerosol inhaler wheezing
carboxymethylcellulose sodium 1 % 2 drp BOTH EYES DAILYPRN PRN dry 11/06/23 11/06/23 1 Week Ago History
eye liquid gel drops eyes ~10/30/23
cholecalciferol (vitamin D3) 50 50 mcg PO DAILY Supplement 11/06/23 11/06/23 11/06/23 History
mcg (2,000 unit) tablet
fluticasone 250 mcg-salmeterol 50 1 inh inhalation R DAILYPRN PRN sob 11/06/23 11/06/23 2 Days Ago History
mcg/dose blistr powdr for ~11/04/23
inhalation (Wixela Inhub)
guaifenesin 100 mg/5 mL oral liquid 200 mg PO DAILYPRN PRN congestion 11/06/23 11/06/23 11/06/23 History
guaifenesin 100 mg/5 mL oral liquid 200 mg PO HS Congestion 11/06/23 11/06/23 11/05/23 History
guaifenesin 600 mg tablet, 1,200 mg PO DAILY Congestion 11/06/23 11/06/23 11/06/23 History
extended release 12 hr (Mucinex)
lisinopril 20 mg tablet 20 mg PO DAILY Blood Pressure 11/06/23 11/06/23 11/06/23 History
pantoprazole 40 mg tablet,delayed 40 mg PO DAILY Gastrointestinal 11/06/23 11/06/23 11/06/23 History
release Issue
tiotropium bromide 18 mcg capsule 1 cap inhalation R DAILY 11/06/23 11/06/23 11/05/23 History
with inhalation device (Spiriva Lung/Breathing Issues
with HandiHaler)
Review of Systems
-
History Source: Patient
All other systems: Negative unless noted
Vitals / Labs / Diagnostic Testing
Vital Signs
Temp Pulse Resp BP Pulse Ox
98.3 F 84 18 136/78 93
11/11/23 07:00 11/11/23 12:09 11/11/23 12:09 11/11/23 07:00 11/11/23 12:09
Lab Data
11/07/23 08:27
11/11/23 09:17
Microbiology
11/06/23 13:00 Blood/Venous Blood Culture - Final
No Growth - Final Report
Diagnostic Testing:
Physical Exam
-
HEENT: Normocephalic, Anicteric and Moist Mucous Membranes
Cardiovascular: S1/S2 and Regular Rhythm
Respiratory: Clear and Non-Labored Respirations
GI: Soft, Non Distended and Non Tender
Neurology: Awake, Alert, Oriented, AO x 3 and No Motor Deficits
Skin: Warm, Dry and Good Color
General: Comfortable and Other (NAD)
Assessment
-
Patient is a 83-year-old female with history of COPD, HTN presents to ER complaining of shortness of breath that started approximately 1 week ago and has worsened with a productive yellow cough. She was admitted on 11/06/23 for AECOPD likely
triggered by bronchitis. She has been improving since admission with IV steroids.
AECOPD
Likely triggered by bronchitis
Productive sputum-yellow
Worsening SOB
Acute on chronic hyponatremia
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
COPD
Neumann's esophagus/GERD
HTN
History of breast cancer s/p right mastectomy/left lumpectomy
Skin cancer
DJD/osteoarthritis
B/L hip replacements
Former smoker
Obesity, BMI 33
Plan
No oxygen is currently needed, currently saturating >90% on RA
Prior history of lung disease is noted including COPD
She had been following with Dr Jr Thornton and last seen this past Fall. She notes that she had been stable on inhalers and generally well controlled.
She does not have frequent exacerbations requiring prednisone, hospitalizations. Last flare, was several years ago due to bronchitis.
Former smoker, quit in 1988.
CXR showing chronic changes possibly progressed compared to prior imaging. It is otherwise clear and without acute findings.
Other imaging reviewed--no chest CT records
[facility] obtain [facility]
No prior ECHO results for review
proBNP neg on admission
IV steroids, plan to transition to PO prednisone tomorrow
Can taper quickly at discharge
I will resume her home inhalers to continue at discharge
She prefer to change to Advair brand and not continue Wixela
Will need outpatient pulmonary evaluation in our office for PFTs and 6MWT
Reviewed with patient
She would like to transition her care to
We will arrange
Discharge planning per team in AM
We will follow
Diagnostic Data
Chest X-Ray: 11/06/23- Coarse interstitial markings at the lung bases are likely scarring or fibrosis, changes of COPD. There are no acute findings.
08/09/22- No acute disease of the chest. Findings suggesting COPD.
CT Scan:
Echo:
PFT's:
Reports and relevant images were personally reviewed.
--- NOTE | 2023-11-11 17:15 | W.PN.NEPH.PH ---
Today's Communication / Plan
-
low dose lasix
Assessment/Plan
-
Impression:
Hyponatremia
COPD exacerbation
Hypertension
Plan:
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
sodium better at 129-s/p 3%x2
-Maintain fluid restriction
dose lasix today
BP stable
-
-
Date of Service: November 11, 2023
CC / HPI / ROS
-
Chief Complaint:
hyponatremia
History of Present Illness:
COPD exacerbation
hyponatremia improvign with HTS to 129
BP stable, on RA
Review of Systems:
still with cough and some sob
off O2
Labs
-
Labs:
WBC 8.6 10^3/uL (4.8-10.8) 11/07/23 08:27
RBC 4.88 10^6/uL (4.20-5.40) 11/07/23 08:27
Hgb 14.6 g/dL (12.0-16.0) 11/07/23 08:27
Hct 43.9 % (37.0-47.0) 11/07/23 08:27
Plt Count 241 10^3/uL (130-400) 11/07/23 08:27
Sodium 129 mmol/L (135-145) L 11/11/23 09:17
Potassium 5.1 mmol/L (3.5-5.1) 11/11/23 09:17
Chloride 96 mmol/L (98-107) L 11/11/23 09:17
Carbon Dioxide 24 mmol/L (22-30) 11/11/23 09:17
BUN 29 mg/dl (7-17) H 11/11/23 09:17
Creatinine 0.6 mg/dL (0.6-1.0) 11/11/23 09:17
eGFR > 60.00 11/11/23 09:17
Glucose 127 mg/dl (70-99) H 11/11/23 09:17
Calcium 10.2 mg/dl (8.4-10.2) 11/11/23 09:17
Eyi-W-Ckwaumdmfof Pept 171 pg/ml 11/06/23 13:00
Albumin 4.6 g/dl (3.5-5.0) 11/06/23 13:00
Physical Exam
-
Vital Signs:
Vital Signs
Temp Pulse Resp BP Pulse Ox
98.2 F 76 18 134/72 94
11/11/23 15:00 11/11/23 15:00 11/11/23 15:00 11/11/23 15:00 11/11/23 15:00
Cardiovascular:: Regular rate and rhythm
Respiratory:: Bilateral: CTA (decreased)
Lung Excursion:: Normal
Abdomen:: Nontender and Soft
Extremity Edema:: None: Bilateral:
Lucas Catheter: No
[2023-11-11] MEDS: LASIX 20 MG PO (17:27)
[2023-11-11] MEDS: ADVAIR HFA 230/21 MCG INHALER 2 PUFF INH (19:45)
[2023-11-11] MEDS: TYLENOL 650 MG PO (22:31)
[2023-11-11 23:59] VITALS: BP 118/71
[2023-11-12 06:00] VITALS: BMI 33.0
[2023-11-12 06:21] LABS: Blood Urea Nitrogen 29 mg/dl (7-17); Calcium 9.9 mg/dl (8.4-10.2); Carbon Dioxide 27 mmol/L (22-30); Chloride 94 mmol/L (98-107); Estimated Creatinine Clearance 75 ml/min; Glucose 109 mg/dl (70-99); Potassium 4.9 mmol/L (3.5-5.1); Sodium 126 mmol/L (135-145); eGFR > 60.00
[2023-11-12 07:00] VITALS: BP 133/65
[2023-11-12] MEDS: ZESTRIL 20 MG PO (07:52)
[2023-11-12] MEDS: VIBRAMYCIN 100 MG PO ×2 (07:52→20:08)
[2023-11-12] MEDS: MUCINEX 1200 MG PO (07:52)
[2023-11-12] MEDS: VITAMIN D3 (cholecalciferol) 50 MCG PO (07:52)
[2023-11-12] MEDS: DELTASONE 40 MG PO (07:52)
[2023-11-12] MEDS: PROTONIX 40 MG PO (07:52)
[2023-11-12] MEDS: SPIRIVA RESPIMAT 2.5 MCG 2 PUFF INH (08:04)
[2023-11-12] MEDS: ADVAIR HFA 230/21 MCG INHALER 2 PUFF INH ×2 (08:05→19:47)
--- NOTE | 2023-11-12 10:05 | W.PN.PUL3 ---
Today's Communication / Plan
-
Doing well on her inhalers, still SOB but we discussed PFT planning and further management can be done as OP
Ongoing hyponatremia management per team, nephro following
Ok from our perspective for discharge
We will transition her care to our office from [facility]
Assessment
-
Patient is a 83-year-old female with history of COPD, HTN presents to ER complaining of shortness of breath that started approximately 1 week ago and has worsened with a productive yellow cough. She was admitted on 11/06/23 for AECOPD likely
triggered by bronchitis. She has been improving since admission with IV steroids.
AECOPD
Likely triggered by bronchitis
Productive sputum-yellow
Worsening SOB
Acute on chronic hyponatremia
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
COPD
Neumann's esophagus/GERD
HTN
History of breast cancer s/p right mastectomy/left lumpectomy
Skin cancer
DJD/osteoarthritis
B/L hip replacements
Former smoker
Obesity, BMI 33
Plan
No oxygen is currently needed, currently saturating >90% on RA
Prior history of lung disease is noted including COPD
She had been following with [facility], Dr Norris and last seen this past Fall. She notes that she had been stable on inhalers and generally well controlled.
She does not have frequent exacerbations requiring prednisone, hospitalizations. Last flare, was several years ago due to bronchitis.
Former smoker, quit in 1988.
CXR showing chronic changes possibly progressed compared to prior imaging. It is otherwise clear and without acute findings.
Other imaging reviewed--no chest CT records
Can obtain records from [facility] as OP
No prior ECHO results for review
proBNP neg on admission
IV steroids, plan to transition to PO prednisone tomorrow
Can taper quickly at discharge
I will resume her home inhalers to continue at discharge
She prefer to change to Advair brand and not continue Wixela
Ongoing hyponatremia management
Nephro following
Will need outpatient pulmonary evaluation in our office for PFTs and 6MWT
Reviewed with patient
She would like to transition her care to
We will arrange
Discharge planning per team
Diagnostic Data
Chest X-Ray: 11/06/23- Coarse interstitial markings at the lung bases are likely scarring or fibrosis, changes of COPD. There are no acute findings.
08/09/22- No acute disease of the chest. Findings suggesting COPD.
CT Scan:
Echo:
PFT's:
Reports and relevant images were personally reviewed.
Subjective Data
-
Date of Service:
Date of Service: November 12, 2023
Chief Complaint: Pulmonary Follow Up
Subjective:
no new events, stable on room air
Objective Data
Data Reviewed
Vital Signs / I&O / Oxygen:
Vital Signs
Temp Pulse Resp BP Pulse Ox
97.6 F 66 16 133/65 96
11/12/23 07:00 11/12/23 08:09 11/12/23 08:09 11/12/23 07:00 11/12/23 08:09
Intake and Output
11/11/23 11/12/23 11/13/23
06:59 06:59 06:59
Intake Total 1140 / 1380 960 / 960
Balance 1140 / 1380 960 / 960
SaO2 96
Nasal Cannula flow liters per 2
minute
Physical Exam
General: Comfortable and Other (NAD)
HEENT: Normocephalic, Anicteric and Moist Mucous Membranes
Cardiovascular: S1-S2 and Regular Rhythm
Respiratory: Clear and Non-Labored Respirations
GI: Soft, Non Distended and Non Tender
Neurology: Awake, Alert, Oriented, AO x 3 and No Motor Deficits
Skin: Warm, Dry and Good Color
Labs/Micro/Reports
Lab Data
11/07/23 08:27
11/12/23 05:25
Microbiology
11/06/23 13:00 Blood/Venous Blood Culture - Final
No Growth - Final Report
[2023-11-12 11:54] VITALS: PULSE 76; O2SAT 94
--- NOTE | 2023-11-12 14:19 | W.PN.HOSP.TC ---
Today's Communication/Plan
-
All discussed with the patient
Discussed with nephrology
Discussed with the nurse
Assessment / Plan
Assessment / Plan
Physical exam:
General: Awake, alert and oriented x3, not in distress and holds appropriate conversation.
HEENT: No active discharge, ecchymosis or bruising, moist lips, tongue and mucous membrane.
Eyes: No discharge or red conjunctiva, no nystagmus, pupils are reactive and equal
Neck:Supple, no JVD no bruit no goiter.
Respiratory: Normal AP contour and diameter, normal chest wall movement, normal respiratory effort, no respiratory distress,
Lungs: Mildly diminished air entry bilaterally, fine bilateral wheezing but no rhonchi, no rales or crackles
Heart: S1, S2 regular, normal rate, no added sound.
Gastrointestinal: Positive bowel sounds, soft, nontender, no guarding or rigidity or organomegaly
Musculoskeletal: , no chest wall abnormality or tenderness. All joints and extremities have good range of motion, no muscle tenderness or any joint swelling or tenderness.
Extremities: No pitting edema, good peripheral pulses, good range of motion
Skin: Warm and dry, no ulceration, normal color.
Assessment and plan:
#Acute COPD exacerbation possible sec to bronchitis -improving but still symptomatic and not ready for discharge is going to the bathroom made her short of breath.
-Off oxygen.
-Continue prednisone and taper
-Pulmonary on board and input appreciated
- cw Doxycycline 100 mg every 12 hours for 5 days
-DuoNebs scheduled and as needed
-Continue Robitussin as needed
-Monitor vital sign
-Patient follows with pulmonology at [facility], she will follow-up or toe puller upon discharge
-Since she is still symptomatic short of breath with exertion,
#Hyponatremia, worsening yesterday was 129 today is 126
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
Euvolemic.
Urine osmolality was 282 which is low. SIADH not much likely.
Sodium improved was 129 today
Off 3%
Nephrology on board
TSH low but free T4 normal. Cortisol normal. Repeat TSH in 2-4 weeks.
Recheck labs
#HTN�benign
-Continue lisinopril 20 mg daily
-Continue to monitor blood
#GERD
-Continue Protonix 40 mg daily
#Arthritis�unknown type
Patient takes Tylenol 1300 mg daily
#Breast cancer with right mastectomy/left lumpectomy
#Dry eye syndrome
Continue artificial tears
#Chronic ambulatory dysfunction
Uses cane at baseline
DVT prophylaxis
SCDs as patient reports itching from heparin
DNR
Still short of breath and hyponatremia worsening. Not ready for discharge
Anticipated Discharge: 24 - 48 hours
Subjective/Interval History
-
Date of Service: November 12, 2023
Seen and examined, still short of breath with exertion and feeling tired and fatigued, given she walks around in her room and gets out easily gets short of breath, denies any fever or chill or cough or congestion, no urinary or GI symptoms. Sodium
level trending down further
Objective Data
-
Labs:
Laboratory Results
11/12/23
05:25
Sodium 126 L
Potassium 4.9
Chloride 94 L
Carbon Dioxide 27
BUN 29 H
Creatinine 0.6
Glucose 109 H
Calcium 9.9
Vital Signs:
Vital Signs
Temp Pulse Resp BP Pulse Ox
97.6 F 66 16 133/65 96
11/12/23 07:00 11/12/23 08:09 11/12/23 08:09 11/12/23 07:00 11/12/23 08:30
I&O
11/11/23 11/12/23 11/13/23
07:59 07:59 07:59
Intake Total 1380 / 1380 720 / 720
Balance 1380 / 1380 720 / 720
Review of Systems
-
All other systems: Reviewed and negative
[2023-11-12 15:00] VITALS: BP 149/94
[2023-11-12 15:16] VITALS: BP 135/74; PULSE 80; O2SAT 97
[2023-11-12] MEDS: SAMSCA 15 MG PO (18:12)
--- NOTE | 2023-11-12 18:50 | W.PN.NEPH.PH ---
Today's Communication / Plan
-
samsca
Assessment/Plan
-
Impression:
Hyponatremia
COPD exacerbation
Hypertension
Plan:
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
sodium better at 129-s/p 3%x2 , but low at 126 today
will dose samsca today
-Maintain fluid restriction
likely need to have lasix 20mg daily to maintain sodium
if sodium better tomorrow ok for d/c with BMP on Thursday
f/u with PCP, nephro if needed
d/w pt
-
-
Date of Service: November 12, 2023
CC / HPI / ROS
-
Chief Complaint:
hyponatremia
History of Present Illness:
COPD exacerbation
hyponatremia worse today at 126
BP stable, on RA, no fever
Review of Systems:
feels well, improving sob
no n/v
Labs
-
Labs:
WBC 8.6 10^3/uL (4.8-10.8) 11/07/23 08:27
RBC 4.88 10^6/uL (4.20-5.40) 11/07/23 08:27
Hgb 14.6 g/dL (12.0-16.0) 11/07/23 08:27
Hct 43.9 % (37.0-47.0) 11/07/23 08:27
Plt Count 241 10^3/uL (130-400) 11/07/23 08:27
Sodium 126 mmol/L (135-145) L 11/12/23 05:25
Potassium 4.9 mmol/L (3.5-5.1) 11/12/23 05:25
Chloride 94 mmol/L (98-107) L 11/12/23 05:25
Carbon Dioxide 27 mmol/L (22-30) 11/12/23 05:25
BUN 29 mg/dl (7-17) H 11/12/23 05:25
Creatinine 0.6 mg/dL (0.6-1.0) 11/12/23 05:25
eGFR > 60.00 11/12/23 05:25
Glucose 109 mg/dl (70-99) H 11/12/23 05:25
Calcium 9.9 mg/dl (8.4-10.2) 11/12/23 05:25
Gav-V-Tzdgtrpulsj Pept 171 pg/ml 11/06/23 13:00
Albumin 4.6 g/dl (3.5-5.0) 11/06/23 13:00
Physical Exam
-
Vital Signs:
Vital Signs
Temp Pulse Resp BP Pulse Ox
98.2 F 72 18 149/94 93
11/12/23 15:00 11/12/23 15:00 11/12/23 15:00 11/12/23 15:00 11/12/23 15:00
Cardiovascular:: Regular rate and rhythm
Respiratory:: Bilateral: CTA (decreased)
Lung Excursion:: Normal
Abdomen:: Nontender and Soft
Extremity Edema:: None: Bilateral:
Lucas Catheter: No
[2023-11-12] MEDS: TYLENOL 650 MG PO (22:45)
[2023-11-12 23:00] VITALS: BP 109/61
[2023-11-13 06:00] VITALS: BMI 32.4
[2023-11-13] MEDS: ADVAIR HFA 230/21 MCG INHALER 2 PUFF INH (07:28)
[2023-11-13] MEDS: SPIRIVA RESPIMAT 2.5 MCG 2 PUFF INH (07:29)
[2023-11-13 07:31] VITALS: BP 121/70
[2023-11-13] MEDS: MUCINEX 1200 MG PO (08:08)
[2023-11-13] MEDS: DELTASONE 40 MG PO (08:08)
[2023-11-13] MEDS: PROTONIX 40 MG PO (08:08)
[2023-11-13] MEDS: ZESTRIL 20 MG PO (08:09)
[2023-11-13] MEDS: VITAMIN D3 (cholecalciferol) 50 MCG PO (08:09)
[2023-11-13] MEDS: VIBRAMYCIN 100 MG PO (08:13)
--- NOTE | 2023-11-13 08:16 | CM ---
met with patient at bedside.cont with hyponatremia-nephrology following,on doxy and duonebs,sating okay on ra.patient signed medicare letter.Plan:pa home with vn.
--- NOTE | 2023-11-13 09:25 | W.PN.PUL3 ---
Today's Communication / Plan
-
Doing well, stable
Continue inhalers at discharge, prednisone taper
Outpatient pulmonary FU recommended
Discharge planning per team
Assessment
-
Patient is a 83-year-old female with history of COPD, HTN presents to ER complaining of shortness of breath that started approximately 1 week ago and has worsened with a productive yellow cough. She was admitted on 11/06/23 for AECOPD likely
triggered by bronchitis. She has been improving since admission with IV steroids.
AECOPD
Likely triggered by bronchitis
Productive sputum-yellow
Worsening SOB
Acute on chronic hyponatremia
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
COPD
Neumann's esophagus/GERD
HTN
History of breast cancer s/p right mastectomy/left lumpectomy
Skin cancer
DJD/osteoarthritis
B/L hip replacements
Former smoker
Obesity, BMI 33
Plan
No oxygen is currently needed, currently saturating >90% on RA
Prior history of lung disease is noted including COPD
She had been following with Dr Jr Thornton and last seen this past Fall. She notes that she had been stable on inhalers and generally well controlled.
She does not have frequent exacerbations requiring prednisone, hospitalizations. Last flare, was several years ago due to bronchitis.
Former smoker, quit in 1988.
CXR showing chronic changes possibly progressed compared to prior imaging. It is otherwise clear and without acute findings.
Other imaging reviewed--no chest CT records
Can obtain records from [facility] as OP
No prior ECHO results for review
proBNP neg on admission
PO prednisone taper
Can taper quickly at discharge
Continue home inhalers Advair/Spiriva at discharge
Ongoing hyponatremia management
Nephro following
Will need outpatient pulmonary evaluation in our office for PFTs and 6MWT
Reviewed with patient
She would like to transition her care to
We will arrange
Discharge planning per team
Diagnostic Data
Chest X-Ray: 11/06/23- Coarse interstitial markings at the lung bases are likely scarring or fibrosis, changes of COPD. There are no acute findings.
08/09/22- No acute disease of the chest. Findings suggesting COPD.
CT Scan:
Echo:
PFT's:
Reports and relevant images were personally reviewed.
Subjective Data
-
Date of Service:
Date of Service: November 13, 2023
Chief Complaint: Pulmonary Follow Up
Subjective:
walking hallway, doing well with SOB
no new issues
Objective Data
Data Reviewed
Vital Signs / I&O / Oxygen:
Vital Signs
Temp Pulse Resp BP Pulse Ox
97.6 F 75 14 121/70 94
11/13/23 07:31 11/13/23 07:36 11/13/23 07:36 11/13/23 07:31 11/13/23 07:36
Intake and Output
11/12/23 11/13/23 11/14/23
06:59 06:59 06:59
Intake Total 960 / 960 1620 / 1620
Balance 960 / 960 1620 / 1620
SaO2 94
Nasal Cannula flow liters per 2
minute
Physical Exam
General: Comfortable and Other (NAD)
HEENT: Normocephalic, Anicteric and Moist Mucous Membranes
Cardiovascular: S1-S2 and Regular Rhythm
Respiratory: Clear and Non-Labored Respirations
GI: Soft, Non Distended and Non Tender
Neurology: Awake, Alert, Oriented, AO x 3 and No Motor Deficits
Skin: Warm, Dry and Good Color
Labs/Micro/Reports
Lab Data
11/07/23 08:27
Microbiology
11/06/23 13:00 Blood/Venous Blood Culture - Final
No Growth - Final Report
[2023-11-13 10:06] LABS: Blood Urea Nitrogen 28 mg/dl (7-17); Calcium 10.1 mg/dl (8.4-10.2); Carbon Dioxide 26 mmol/L (22-30); Chloride 95 mmol/L (98-107); Estimated Creatinine Clearance 63 ml/min; Glucose 109 mg/dl (70-99); Potassium 4.3 mmol/L (3.5-5.1); Sodium 130 mmol/L (135-145); eGFR > 60.00
--- NOTE | 2023-11-13 11:27 | W.PN.HOSP.TC ---
Today's Communication/Plan
-
DC
Assessment / Plan
Assessment / Plan
#Acute COPD exacerbation possible sec to bronchitis -improving but still symptomatic and not ready for discharge is going to the bathroom made her short of breath.
-Off oxygen.
-Continue prednisone taper
-Pulmonary on board and input appreciated
-DC further Doxycycline
-DuoNebs as needed
-Continue Robitussin as needed
- Follow with Pulm on dc
#Hyponatremia
Euvolemic.
S/p hypertonic solution initially and received Samsca yesterday. Improved sodium to 130 today. Continue with fluid restriction. Daily Lasix 20 mg per nephrology.
TSH low but free T4 normal. Cortisol normal. Repeat TSH in 2-4 weeks.
Follow-up lab as outpatient.
#HTN�benign
-Continue lisinopril 20 mg daily
-Continue to monitor blood
#GERD
-Continue Protonix 40 mg daily
#Arthritis�unknown type
Patient takes Tylenol 1300 mg daily
#Breast cancer with right mastectomy/left lumpectomy
#Dry eye syndrome
Continue artificial tears
#Chronic ambulatory dysfunction
Uses cane at baseline
DVT prophylaxis
SCDs as patient reports itching from heparin
DNR
Medically stable for discharge.
More than 30 minutes spent in discharge including
Final examination of the patient
Summarizing hospital stay
Instructions for continuing care to all relevant caregivers
Preparation of discharge records, prescriptions, and referral forms
Total time spent (in minutes): 32
Anticipated Discharge: Today
Subjective/Interval History
-
Date of Service: November 13, 2023
Voices no specific complaints. Resolved shortness of breath. Voicing no respiratory complaints.
Objective Data
-
Labs:
Laboratory Results
11/13/23
09:09
Sodium 130 L
Potassium 4.3
Chloride 95 L
Carbon Dioxide 26
BUN 28 H
Creatinine 0.7
Glucose 109 H
Calcium 10.1
Vital Signs:
Vital Signs
Temp Pulse Resp BP Pulse Ox
97.6 F 75 14 121/70 94
11/13/23 07:31 11/13/23 07:36 11/13/23 07:36 11/13/23 07:31 11/13/23 07:36
I&O
11/12/23 11/13/23 11/14/23
06:59 06:59 06:59
Intake Total 960 / 960 1620 / 1620
Balance 960 / 960 1620 / 1620
Review of Systems
-
Constitutional: Denies Fever
EENT: Denies Sore Throat
Abdomen/GI: Denies Abdominal Pain, Nausea or Vomiting
Neuro: Denies Dizzy
Physical Exam
-
General: No Apparent Distress
HEENT: Moist Mucous Membranes
Respiratory: Clear to Auscultation; Negative Wheezes or Crackles
Cardiac: Regular Rhythm and S1/S2
Neuro: AO x 3
Psych: Calm
Data Reviewed
-
Labs: Labs Reviewed by me
--- NOTE | 2023-11-13 11:37 | W.DS.TRANS ---
DC Summary - Teaching [employer]
-
Discharge Instructions:
Discharge Diagnosis/Procedures COPD flare; euvolemic hyponatremia
Diet Restrict fluids to 48 oz
Activity As tolerated
Driving Restrictions As prior to admission
Bathing Restrictions None
Blood Work BMP blood test in one week -arrange through PCP
Instructions:
Stand-Alone Forms:
Changes to Home Medications: Yes
Discharge Medications:
DC Medications w/original date entered in [employer]
acetaminophen 650 mg tablet,extended release (Tylenol 8 Hour) 1,300 mg PO DAILY Pain 11/06/23
albuterol sulfate 90 mcg/actuation aerosol inhaler 2 puff inhalation R Q4HPRN PRN wheezing 11/06/23
carboxymethylcellulose sodium 1 % eye liquid gel drops 2 drp BOTH EYES DAILYPRN PRN dry eyes 11/06/23
cholecalciferol (vitamin D3) 50 mcg (2,000 unit) tablet 50 mcg PO DAILY Supplement 11/06/23
fluticasone 250 mcg-salmeterol 50 mcg/dose blistr powdr for inhalation (Wixela Inhub) 1 inh inhalation R DAILYPRN PRN sob 11/06/23
guaifenesin 100 mg/5 mL oral liquid 200 mg PO DAILYPRN PRN congestion 11/06/23
guaifenesin 100 mg/5 mL oral liquid 200 mg PO HS Congestion 11/06/23
guaifenesin 600 mg tablet, extended release 12 hr (Mucinex) 1,200 mg PO DAILY Congestion 11/06/23
lisinopril 20 mg tablet 20 mg PO DAILY Blood Pressure 11/06/23
pantoprazole 40 mg tablet,delayed release 40 mg PO DAILY Gastrointestinal Issue 11/06/23
tiotropium bromide 18 mcg capsule with inhalation device (Spiriva with HandiHaler) 1 cap inhalation R DAILY Lung/Breathing Issues 11/06/23
furosemide 20 mg tablet (Lasix) 20 mg PO DAILY #10 tabs 11/13/23
prednisone 10 mg tablet 10 mg PO DIRECTED #18 tabs 11/13/23
Home Medication Changes
New medications - prednisone taper, Lasix
Pending Results: No
--- NOTE | 2023-11-13 12:04 | CM ---
Pt for d/c today
Has ride home with daughter
Given IMM
Plan - home with [facility]
--- NOTE | 2023-11-13 13:16 | W.PN.NEPH.PH ---
Today's Communication / Plan
-
- Na better
- likely d/c today
Assessment/Plan
-
Impression:
Hyponatremia
COPD exacerbation
Hypertension
Plan:
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
sodium better at 130
s/p 3% and samsca
Maintain fluid restriction
please initiate lasix 20mg daily to maintain Na
if sodium better tomorrow ok for d/c with BMP on Thursday
f/u with PCP, nephro if needed
d/w pt
-
-
Date of Service: November 13, 2023
CC / HPI / ROS
-
Chief Complaint:
hyponatremia
History of Present Illness:
COPD exacerbation
hyponatremia improved to 130 s/p samsca
BP stable, on RA, no fever
Review of Systems:
feels well, improving sob
no n/v
Labs
-
Labs:
WBC 8.6 10^3/uL (4.8-10.8) 11/07/23 08:27
RBC 4.88 10^6/uL (4.20-5.40) 11/07/23 08:27
Hgb 14.6 g/dL (12.0-16.0) 11/07/23 08:27
Hct 43.9 % (37.0-47.0) 11/07/23 08:27
Plt Count 241 10^3/uL (130-400) 11/07/23 08:27
Sodium 130 mmol/L (135-145) L 11/13/23 09:09
Potassium 4.3 mmol/L (3.5-5.1) 11/13/23 09:09
Chloride 95 mmol/L (98-107) L 11/13/23 09:09
Carbon Dioxide 26 mmol/L (22-30) 11/13/23 09:09
BUN 28 mg/dl (7-17) H 11/13/23 09:09
Creatinine 0.7 mg/dL (0.6-1.0) 11/13/23 09:09
eGFR > 60.00 11/13/23 09:09
Glucose 109 mg/dl (70-99) H 11/13/23 09:09
Calcium 10.1 mg/dl (8.4-10.2) 11/13/23 09:09
Dqf-M-Sszlbrrzrec Pept 171 pg/ml 11/06/23 13:00
Albumin 4.6 g/dl (3.5-5.0) 11/06/23 13:00
Physical Exam
-
Vital Signs:
Vital Signs
Temp Pulse Resp BP Pulse Ox
97.6 F 75 14 121/70 94
11/13/23 07:31 11/13/23 07:36 11/13/23 07:36 11/13/23 07:31 11/13/23 07:36
Cardiovascular:: Regular rate and rhythm
Respiratory:: Bilateral: CTA
Lung Excursion:: Normal
Abdomen:: Nontender and Soft
Bowel Sounds:: Normal
Extremity Edema:: None: Bilateral:
Lucas Catheter: No
[2023-11-13 15:50] VITALS: BP 129/66
== END 2023-11-13 17:16 | disposition home health service (06) | DRG 202 ==
LOC: 3 WEST ACU 15:31
PROVIDERS: Clinical Nurse Specialist Family Health; Internal Medicine; Student in an Organized Health Care Education/Training Program; ADMITTING PHYSICIAN Internal Medicine; CONSULT PHYSICIAN Internal Medicine; EMERGENCY PHYSICIAN Emergency Medicine; FAMILY PHYSICIAN Family Medicine; OTHER PHYSICIAN Specialist
DX: J40 Bronchitis, not specified as acute or chronic (principal); E22.2 Syndrome of inappropriate secretion of antidiuretic hormone; J44.1 Chronic obstructive pulmonary disease with (acute) exacerbation; E44.0 Moderate protein-calorie malnutrition; Z11.52 Encounter for screening for COVID-19; Z66 Do not resuscitate; Z87.891 Personal history of nicotine dependence; K21.9 Gastro-esophageal reflux disease without esophagitis; Z85.3 Personal history of malignant neoplasm of breast; C50.919 Malignant neoplasm of unspecified site of unspecified female breast; I10 Essential (primary) hypertension; Z68.33 Body mass index [BMI] 33.0-33.9, adult; E66.9 Obesity, unspecified; H04.129 Dry eye syndrome of unspecified lacrimal gland; K22.70 Barrett's esophagus without dysplasia; R09.02 Hypoxemia
CPT/HCPCS: 71045; 80048; 80053; 82533; 83605; 83880; 83930; 83935; 84300; 84439; 84443; 84484; 85025; 87040; 87502; 87811; 93005; 94640; 96374; 97116; 97162; 97166; 97535; 99285

== ENCOUNTER → 2023-12-02 09:08 | Outpatient (REF) | payer OTHER, SELFPAY | LOC: HWRAD 09:08 | PROVIDERS: ATTENDING PHYSICIAN Nurse Practitioner Adult Health; FAMILY PHYSICIAN Family Medicine | DX: R05.8 Other specified cough (principal); R06.02 Shortness of breath | CPT/HCPCS: 71046 ==

== ENCOUNTER → 2024-04-14 06:25 | Day surgery (SDC) | payer OTHER, SELFPAY | LOC: GI 06:25 | PROVIDERS: ATTENDING PHYSICIAN Internal Medicine; FAMILY PHYSICIAN Family Medicine | DX: K31.89 Other diseases of stomach and duodenum (principal); Q39.9 Congenital malformation of esophagus, unspecified; R13.10 Dysphagia, unspecified | CPT/HCPCS: 43249; 43239; 88305; 88342 ==

== ENCOUNTER 2024-12-01 11:22 | Emergency (ER) | payer OTHER, SELFPAY ==
[2024-12-01 11:51] VITALS: BP 169/84
[2024-12-01 12:12] LABS: % Basophils 0.5 % (0-2); % Eosinophils 1.5 % (0-6); % Immature Granulocytes 0.2 % (0-0.5); % Lymphocytes 21.3 % (20.5-51.1); % Monocytes 11.2 % (1.7-9.3); % Neutrophils 65.3 % (42.2-75.2); Absolute Eosinophils 0.1 10^3/uL (0-0.7); Absolute Lymphocytes 1.3 10^3/uL (1.2-3.4); Absolute Monocytes 0.7 10^3/uL (0.1-0.6); Absolute Neutrophils 3.8 10^3/uL (1.4-6.5); Hematocrit 42.6 % (37.0-47.0); Hemoglobin 14.4 g/dL (12.0-16.0); Mean Corp Hgb Conc. 33.8 g/dL (33.0-37.0); Mean Corpuscular Hgb 30.5 pg (27.0-31.0); Mean Corpuscular Volume 90.3 fL (81.0-99.0); Nucleated Red Blood Cells % 0 %; Platelet Count 210 10^3/uL (130-400); Red Blood Cell Count 4.72 10^6/uL (4.20-5.40); Red Cell Dist. Width 12.7 % (11.5-14.5); White Blood Cell Count 5.9 10^3/uL (4.8-10.8)
[2024-12-01 12:27] LABS: ALT (SGPT) 14 U/L (0-35); AST (SGOT) 18 U/L (14-36); Albumin 4.6 g/dl (3.5-5.0); Alkaline Phosphatase 57 U/L (38-126); Blood Urea Nitrogen 10 mg/dl (7-17); Calcium 10.2 mg/dl (8.4-10.2); Carbon Dioxide 26 mmol/L (22-30); Chloride 98 mmol/L (98-107); Glucose 100 mg/dl (70-99); Potassium 4.4 mmol/L (3.5-5.1); Sodium 133 mmol/L (135-145); Total Bilirubin 1.3 mg/dl (0.2-1.3); Total Protein 6.7 g/dl (6.3-8.2); eGFR > 60.00
[2024-12-01 12:38] LABS: Troponin I < 0.012 ng/ml
[2024-12-01 13:34] VITALS: BP 179/73
--- NOTE | 2024-12-01 13:41 | ED.GENMED ---
History of Present Illness
General
Chief Complaint: Abdominal Pain
Source: patient
Time Seen by Provider: 12/01/24 13:30
History of Present Illness
History of Present Illness:
84-year-old female presents emergency room complaining of upper abdominal discomfort and lower chest discomfort that has been occurring intermittently for the past week. She describes it as an acid reflux type discomfort. She has had history of
GERD. She has had cardiac cath in the past at [facility] and she has not had any stents. 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 She been taking [id number] Pepcid. She feels perhaps mildly more short of breath recently but her ability
to do activities is not limited. She denies any associated diaphoresis or nausea
Past History
Past History
ED Past Medical History: COPD, GERD and HTN
ED Past Surgical History: Orthopedic (bilateral hip replacement) and Other (right mastectomy, left lumpectomy, cataracts)
Social History
Tobacco: Former smoker
Alcohol: None
Drug: None
Living: with family
Phy Exam
Physical Exam
Physical Exam:
General: Awake, Alert, Oriented X3. No acute distress appears stated age not better
Vitals: unremarkable
Head: Atraumatic
Eyes: Pupils equal, EOMI
Throat: Airway intact, no exudates
Neck: Trachea midline
Lungs: Clear and equal b/l
Heart: Regular rate, no murmurs
Abd: Soft, Nontender, No pulsatile mass
Neuro: Nonfocal
Skin: Warm, dry, no rash
Extremities: pulses equal b/l, no edema
Course
Orders/Labs/Results
Orders:
Orders
12/01/24 11:23
Electrocardiogram (*1) Urgent
Reason for Study: Other
Other Reason for Exam: epigastric abdominal
EKG- Treatment ONCE
12/01/24 12:01
Complete Blood Count/With Diff Urgent
Comprehensive Metabolic Panel Urgent
Troponin I Urgent
12/01/24 13:39
Mag Hydrox/Al Hydrox/Simeth [Maalox] 30 ml Phenobarb/Hyoscy/Atropine/Scop [] 10 ml PO NOW
12/01/24 13:40
CR Chest - 2 Views Urgent
Comment:
Reason For Exam: chest discomfort
12/01/24 13:55
Mag Hydrox/Al Hydrox/Simeth [Maalox] 30 ml .ROUTE .STK-MED ONE
Phenobarb/Hyoscy/Atropine/Scop [] 10 ml .ROUTE .STK-MED ONE
12/01/24 14:38
Troponin I Urgent
Abnormal Lab Results
12/01/24
12:01
Absolute Monos (auto) 0.7 H 10^3/uL
(0.1-0.6)
Monocytes % 11.2 H %
(1.7-9.3)
Sodium 133 L mmol/L
(135-145)
Glucose 100 H mg/dl
(70-99)
12/01/24 12:01
12/01/24 12:01
Vital Signs
Initial and Last Documented VS:
Initial Vital Signs
Temp Pulse Resp BP Pulse Ox
98.5 F 68 16 169/84 98
12/01/24 11:51 12/01/24 11:51 12/01/24 11:51 12/01/24 11:51 12/01/24 11:51
Last Documented Vital Signs
Temp Pulse Resp BP Pulse Ox
98.5 F 71 17 162/80 98
12/01/24 11:51 12/01/24 16:00 12/01/24 16:00 12/01/24 16:00 12/01/24 11:51
MDM/Problems Addressed
Differential Diagnosis Includes:
Gastritis, acute coronary syndrome, pancreatitis
MDM/Problems Addressed:
Patient presents with upper abdominal pain and lower chest pain. EKG shows no acute ischemic changes. Troponin is normal x 2. Labs are all otherwise reassuring chest x-ray shows no acute abnormalities. Patient had significant improvement with
her symptoms with a GI cocktail. The overall presentation seems consistent with gastritis or GERD. Patient did reveal that she has been eating a highly spiced dish over the past few days which may be contributing. Patient also has not been taking
any sort of proton pump inhibitor for some time as she read that he should not take it long-term. She also has Carafate at home which she has not tried yet. I think patient is stable for discharge home. Would recommend at least a 1 month course
of a proton pump inhibitor. She has pantoprazole at home so she will use that. She can also use Carafate for breakthrough symptoms. 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
*Radiology
Radiology exam reviewed: preliminary read by ED provider (No acute abnormality based on my review) and radiology read reviewed
*Pulse Oximetry
Patient hypoxic: no
*EKG
Interpreted by ED Provider?: Yes
Heart Rate: 72
Rate: normal
Rhythm: sinus and PAC's
Mcgrath: left axis deviation
Interval: normal interval
QRS Pattern: normal QRS
Ischemia: non-specific ST changes
*Pocket Setter Interpretation
Rate: normal
Interpretation: abnormal
Heart Rate: 72
Rhythm: sinus and PAC's
*Critical Care Note
Total Time (30-74mins, 75-104mins- exclusive of procedures): Not Applicable
ED Attending Note
-
Portions of this chart may have been created with voice recognition software.� Occasional wrong word or��sound alike� substitutions may have occurred due to the inherent limitations of voice recognition software.
Discharge Plan
Departure
Patient Disposition: Home (Routine Discharge)
Date of Disposition: 12/01/24
Time of Disposition: 15:38
Patient with high blood pressure during this ER visit?: Yes
Condition: Good
Discharge Problem:
Chest pain due to GERD
Instructions: Acid Reflux and GERD in Adults (DC), BLOOD PRESSURE
Prescriptions:
New
omeprazole 40 mg capsule,delayed release(DR/EC)
40 mg PO DAILY Qty: 30 0RF
No Action
lisinopril 20 mg Tablet
20 mg PO DAILY
acetaminophen [Tylenol 8 Hour] 650 mg Tablet Extended Release
975 mg PO DAILY
cholecalciferol (vitamin D3) 50 mcg (2,000 unit) Tablet
50 mcg PO DAILY
Spiriva Respimat 2.5 mcg/actuation Mist
2 puff inhalation R DAILY Qty: 4 0RF
Referrals:
Jose Pace MD [Family Provider] -
Activity Restrictions/Additional Instructions:
Take the carafate you have at home. Follow up with your GI doctor. I have sent a prescription for a one month course of omeprazole.
Interventions
Interventions:
*Risk Screen - Suicide Last Done: 12/01/24 11:51
*General Assessment Last Done: 12/01/24 11:51
*Neglect/Abuse Screening Last Done: 12/01/24 11:51
*ED- Fall Risk Assessment Last Done: 12/01/24 11:51
*ED COVID-19 Vaccine History Last Done: 12/01/24 11:51
*Nursing Disposition Last Done: 12/01/24 16:20
CZ-Vrbvmm-Ecoklpnnya Assessment Last Done: 12/01/24 14:30
Discharge Date and Time
Discharge Date/Time: 12/01/24 16:20
Print Language: GUAMANIAN
[2024-12-01] MEDS: MAALOX 40 PO (14:21)
[2024-12-01 14:26] VITALS: BMI 40.0
[2024-12-01 14:27] VITALS: BP 173/83
[2024-12-01 15:02] VITALS: BP 158/77
[2024-12-01 15:14] LABS: Troponin I < 0.012 ng/ml
[2024-12-01 16:00] VITALS: BP 162/80
== END 2024-12-01 16:20 | disposition home or self-care (01) ==
LOC: EMR 11:22
PROVIDERS: Emergency Medicine; EMERGENCY PHYSICIAN Emergency Medicine; FAMILY PHYSICIAN Family Medicine
DX: R07.89 Other chest pain (principal); K21.9 Gastro-esophageal reflux disease without esophagitis; I10 Essential (primary) hypertension; J44.9 Chronic obstructive pulmonary disease, unspecified; Z87.891 Personal history of nicotine dependence; Z90.11 Acquired absence of right breast and nipple
CPT/HCPCS: 99285; 71046; 80053; 84484; 85025; 93005